=== PATIENT | female | born 1955 | race Caucasian/White ===

== ENCOUNTER 2017-08-06 09:16 | Emergency (ER) | payer MEDICAID ==
[2017-08-06 09:41] VITALS: RESP 18; BMI 41.8
[2017-08-06] MEDS ORDERED: Albuterol-Ipratrop 3 mg / 0.5 (3 ml) UD IH STA (10:07)
[2017-08-06] MEDS ORDERED: Albuterol-Ipratrop 3 mg / 0.5 (3 ml) UD ONE (10:25)
[2017-08-06 11:41] VITALS: BP 115/67; PULSE 71; TEMP 97.9; O2SAT 98
--- NOTE | 2017-08-06 11:46 | C.PDOC ---
History Of Present Illness 62-year-old female, presents to the emergency department with complaints of three week duration of shortness of breath and non-productive cough. States she had a Hx of asthma when she was a child, but has not experienced an exacerbation "for a long time." Denies nausea/vomiting, fevers or chills. Time Seen by Provider: 08/06/17 09:28 Chief Complaint (Nursing): Cough, Cold, Congestion History Per: Patient History/Exam Limitations: no limitations Onset/Duration Of Symptoms: Days Past Medical History Reviewed: Historical Data, Nursing Documentation, Vital Signs Vital Signs: Last Vital Signs Temp 97.9 F 08/06/17 11:40 Pulse 71 08/06/17 11:40 Resp 18 08/06/17 11:40 BP 115/67 08/06/17 11:40 Pulse Ox 98 08/06/17 16:22 - Medical History PMH: Diabetes - [facility] Procedures PHYSICAL THERAPY NEC (02/26/15) Family History: States: No Known Family Hx - Social History Hx Alcohol Use: Yes Hx Substance Use: No - Immunization History Hx Tetanus Toxoid Vaccination: No Hx Influenza Vaccination: No Hx Pneumococcal Vaccination: No Review Of Systems Except As Marked, All Systems Reviewed And Found Negative. Constitutional: Negative for: Fever, Chills Cardiovascular: Negative for: Chest Pain Respiratory: Positive for: Cough, Shortness of Breath Musculoskeletal: Negative for: Back Pain Neurological: Negative for: Weakness, Numbness, Headache, Dizziness Physical Exam - Physical Exam Appears: Non-toxic, No Acute Distress Skin: Warm, Dry, No Rash Head: Atraumatic, Normacephalic Eye(s): bilateral: Normal Inspection Nose: Normal Oral Mucosa: Moist Lips: Normal Appearing Neck: Normal ROM Cardiovascular: Rhythm Regular, No Murmur Respiratory: Normal Breath Sounds, No Accessory Muscle Use Extremity: Normal ROM Neurological/Psych: Oriented x3, Normal Speech ED Course And Treatment O2 Sat by Pulse Oximetry: 98 Progress Note: On re-evaluation patient feels better, no longer c/o SOB, mild diffuse wheezing. Patient was given Zithromax and Predsinone and she is stable to be d/c home. Disposition - Disposition Referrals: Susie Hwang APN [Advanced Practice Nurse] - Disposition: HOME/ ROUTINE Disposition Time: 11:44 Condition: STABLE Additional Instructions: Follow up with your PMD within 1-2 days. Return to Ed if feel worse. Prescriptions: Albuterol 0.083% [Albuterol Sulfate 3 Ml] 3 ml IH .Q4-6H #100 vial Nebulizer [Compact Compressor Nebulizer] 1 dev XX PRN PRN #1 dev PRN Reason: Wheezing Mask, Face [Nebulizer Aerosol Mask Adult] 1 dev XX PRN PRN #1 dev PRN Reason: Wheezing predniSONE [predniSONE Tab] 2 tab PO DAILY #8 tab Albuterol HFA [Ventolin HFA 90 mcg/actuation (8 g)] 1 puff IH .Q4-6H #1 inhaler Azithromycin [Zithromax] 250 mg PO DAILY #4 tab Instructions: Acute Bronchitis (ED), Wheezing (ED) Forms: [employer] (Hebrew) - Clinical Impression Clinical Impression: Bronchitis, Bronchospasm - Scribe Statement The provider has reviewed the documentation as recorded by the Scribe (Purnima Yoder) All medical record entries made by the Scribe were at my direction and personally dictated by me. I have reviewed the chart and agree that the record accurately reflects my personal performance of the history, physical exam, medical decision making, and the department course for this patient. I have also personally directed, reviewed, and agree with the discharge instructions and disposition.
--- NOTE | 2017-08-06 11:58 | RAD ---
HISTORY: cough/wheezing COMPARISON: Comparison is made to 11/06/2016 TECHNIQUE: Chest PA and lateral FINDINGS: LUNGS: No evidence of new infiltrate or consolidation in the lungs. PLEURA: No significant pleural effusion identified. No pneumothorax apparent. CARDIOVASCULAR: Normal. OSSEOUS STRUCTURES: No significant abnormalities. VISUALIZED UPPER ABDOMEN: Normal. OTHER FINDINGS: None. IMPRESSION: No radiographic evidence of pneumonia.
== END 2017-08-06 12:05 | disposition home or self-care (01) ==
LOC: C.ER 09:16
DX: J40 Bronchitis, not specified as acute or chronic (principal); J98.01 Acute bronchospasm

== ENCOUNTER 2018-02-27 14:04 | Inpatient (IN) | payer MEDICARE, MEDICAID ==
[2018-02-27 14:21] VITALS: BMI 37.4
[2018-02-27] MEDS ORDERED: Sodium Chloride 0.9% 1,000 ML IV ONE ×2 (15:34→18:08)
[2018-02-27 15:45] LABS: BASO % 0.3 % (0.0-2.0); EOS % 0.4 % (0.0-4.0); LYMPH # 0.7 K/uL (1.0-4.3); LYMPH % 9.1 % (20.0-40.0); MEAN CORPUSCULAR HEMOGLOBIN 31.4 pg (27.0-31.0); MEAN CORPUSCULAR HGB CONC 34.6 g/dL (33.0-37.0); MEAN PLATELET VOLUME 10.1 fL (7.2-11.7); MONO # 0.1 K/uL (0.0-0.8); MONO % 1.3 % (0.0-10.0); NEUT # 7.2 K/uL (1.8-7.0); NEUT % 88.9 % (50.0-75.0); NRBC % 0.1 % (0.0-2.0); PLATELET COUNT 145 K/uL (130-400); RBC 4.47 Mil/uL (3.80-5.20); RED CELL DISTRIBUTION WIDTH 14.3 % (11.5-14.5); WHITE BLOOD COUNT 8.1 K/uL (4.8-10.8)
[2018-02-27 15:48] LABS: MEAN CELL VOLUME 90.5 fL (81.0-99.0)
[2018-02-27 15:50] LABS: SQUAMOUS EPITHIAL < 1 /hpf (0-5); URINE BACTERIA OCC (<OCC); URINE BILIRUBIN NEGATIVE (NEGATIVE); URINE BLOOD 2+ (NEGATIVE); URINE CLARITY Clear (Clear); URINE COLOR Yellow (YELLOW); URINE GLUCOSE (UA) 1+ mg/dL (Normal); URINE LEUKOCYTE ESTERASE 1+ Leu/uL (Negative); URINE PROTEIN 1+ mg/dL (NEGATIVE); URINE UROBILINOGEN NORMAL mg/dL (0.2-1.0)
[2018-02-27 16:00] LABS: ALB/GLOB RATIO 1.2 (1.0-2.1); ALBUMIN 4.5 g/dL (3.5-5.0); ALT/SGPT 23 U/L (9-52); AST/SGOT 23 U/L (14-36); BLOOD UREA NITROGEN 10 mg/dL (7-17); CALCIUM 9.1 mg/dl (8.6-10.4); GFR AFRICAN-AMERICAN > 60; GFR NON-AFRICAN AMERICAN > 60
[2018-02-27] MEDS ORDERED: Sodium Chloride 0.9% 1,000 ML ONE ×2 (16:51→18:12)
[2018-02-27 16:58] LABS: BANDS 1 % (0-2); BASOPHIL 1 % (0-2); LYMPHOCYTE 11 % (20-40); MONOCYTE 3 % (0-10); NEUTROPHIL 84 % (50-75); PLATELET ESTIMATE NORMAL (NORMAL); TOTAL CELLS COUNTED 100
[2018-02-27 17:17] LABS: VENOUS BLOOD GAS BASE EXCESS -1.7 mmol/L (0.0-2.0); VENOUS BLOOD GAS PCO2 33 mmHg (40-60); VENOUS BLOOD GAS PO2 39 mm/Hg (30-55); VENOUS BLOOD PH 7.43 (7.32-7.43)
[2018-02-27] MEDS ORDERED: cefTRIAXone IV 1 gm in Dextros 50 ML IVPB STA ×2 (17:47→18:01)
--- NOTE | 2018-02-27 19:04 | C.PDOC ---
Time Seen by Provider: 02/27/18 15:23 Chief Complaint (Nursing): Fever History Per: Patient, Family Onset/Duration Of Symptoms: Days (1) Current Symptoms Are (Timing): Still Present Associated Symptoms: Fever, Chills, Nausea, Other (Urinary symptoms) Severity: Moderate Additional History Per: Prior Records Past Medical History Reviewed: Historical Data, Nursing Documentation, Vital Signs Vital Signs: Last Vital Signs Temp 99.2 F 02/27/18 18:57 Pulse 107 H 02/27/18 18:57 Resp 24 02/27/18 18:57 BP 90/57 L 02/27/18 18:57 Pulse Ox 97 02/27/18 18:57 - Medical History PMH: Arthritis, Diabetes, HTN Surgical History: - [facility] Procedures PHYSICAL THERAPY NEC (02/26/15) Family History: States: Unknown Family Hx - Social History Hx Alcohol Use: Yes Hx Substance Use: No - Immunization History Hx Tetanus Toxoid Vaccination: No Hx Influenza Vaccination: Yes Hx Pneumococcal Vaccination: Yes Review Of Systems Except As Marked, All Systems Reviewed And Found Negative. Constitutional: Positive for: Fever, Chills, Weakness, Malaise ENT: Negative for: Nose Congestion, Throat Pain Cardiovascular: Negative for: Chest Pain Respiratory: Negative for: Cough, Shortness of Breath Gastrointestinal: Negative for: Vomiting, Abdominal Pain, Diarrhea Genitourinary: Positive for: Dysuria, Frequency Musculoskeletal: Positive for: Back Pain. Negative for: Neck Pain Skin: Negative for: Rash Neurological: Negative for: Weakness, Numbness, Seizures, Altered Mental Status Physical Exam - Physical Exam Appears: Non-toxic, No Acute Distress Skin: Normal Color, Warm, Dry, No Rash Head: Atraumatic, Normacephalic Eye(s): bilateral: Normal Inspection, PERRL, EOMI Neck: Normal ROM, Supple Cardiovascular: Rhythm Regular Respiratory: Normal Breath Sounds, No Accessory Muscle Use Gastrointestinal/Abdominal: Soft, No Tenderness Back: CVA Tenderness Extremity: Normal ROM Neurological/Psych: Oriented x3, Normal Motor, Normal Sensation ED Course And Treatment - Laboratory Results Result Diagrams: 02/27/18 15:42 02/27/18 15:42 Interpretation Of Abnormal: UTI. Left shift on CBC. O2 Sat by Pulse Oximetry: 97 Pulse Ox Interpretation: Normal Progress - Interventions Interventions:: Observation, Intravenous fluid - Medications Administered Oral: Acetaminophen Intravenous: Other (Abx) - Data Reviewed Data Reviewed: Lab, Old records - Patient Status Patient status: Partially improved - Continuity of Care Discussed patient case with:: Patient, Family-HIPPA compliant, ED Nurse, On- call PMD-pt unassigned - Patient Plan Patient Plan: Admission Disposition Discussed With DrRachell: Joshua Santiago Jr. Comment: He accepted pt on his service. Pt also signed out to MAR. Doctor Will See Patient In The: Hospital Counseled Patient/Family Regarding: Studies Performed, Diagnosis - Disposition Disposition: HOSPITALIZED Disposition Time: 19:05 Condition: FAIR - Clinical Impression Clinical Impression: Fever, Pyelonephritis, acute
--- NOTE | 2018-02-27 23:24 | CP.PCM.HP ---
History of Present Illness - History of Present Illness History of Present Illness: CC: fever and chills 62 year old female with a PMHx of DM, arthritis and HTN presents to the ED for fever and generalized body aches. Patient's niece was a bedside acted as core filer. Patient had a subjective fever and generalized body aches started last night. It did not improve overnight and became worse in the afternoon which which prompted the patient to come to the ED. She did not take any medications for the fever or body ache. Patient had similar episode last year which she saw her PMD and received antibiotics for it. She denies having dysuria , changes in urine color, or incontinence. Patient further denies shortness of breath, chest pain, nausea, vomiting, diarrhea, changes in diet, or sick contacts. Niece: Selena [phone] PMD: Lissy MERCEDES, Brogan PMH:DM, HTN, arthritis PSx: Right knee replacement (2001), Cesarian section (1979) Allergy: NKDA Social: Denies alcohol, tobacco, or illicit drug. She lives with her sister and is unemployed Family Hx: Father DM, Mother , Sister: unknown cancer at 64 Medications: Metformin, ?name insulin once a week Pharmacy: [facility] pharmacy Present on Admission - Present on Admission Any Indicators Present on Admission: No Review of Systems - Constitutional Constitutional: As Per HPI, Chills, Fever, Weakness - EENT Eyes: As Per HPI. absent: Blind Spots, Blurred Vision, Discharge Ears: As Per HPI. absent: Dizziness Nose/Mouth/Throat: As Per HPI. absent: Epistaxis, Nasal Trauma - Breasts Breasts: As Per HPI - Cardiovascular Cardiovascular: As Per HPI. absent: Chest Pain, Diaphoresis - Respiratory Respiratory: As Per HPI. absent: Cough, Dyspnea - Gastrointestinal Gastrointestinal: As Per HPI, Abdominal Pain. absent: Diarrhea, Nausea, Vomiting - Genitourinary Genitourinary: As Per HPI - Reproductive: Female Reproductive:Female: As Per HPI - Menstruation Menstruation: As Per HPI - Musculoskeletal Musculoskeletal: As Per HPI. absent: Neck Pain, Numbness - Integumentary Integumentary: As Per HPI. absent: Acne, Bleeding Lesions - Neurological Neurological: As Per HPI, Weakness. absent: Dizziness, Numbness, Syncope - Psychiatric Psychiatric: As Per HPI. absent: Depression, Irritability - Endocrine Endocrine: As Per HPI - Hematologic/Lymphatic Hematologic: As Per HPI Past Patient History - Past Social History Smoking Status: Never Smoked - CARDIAC Hx Hypertension: Yes - ENDOCRINE/METABOLIC Hx Endocrine Disorders: Yes Hx Diabetes Mellitus Type 2: Yes - MUSCULOSKELETAL/RHEUMATOLOGICAL Hx Arthritis: Yes - PSYCHIATRIC Hx Substance Use: No - SURGICAL HISTORY Hx Surgeries: Yes Hx Orthopedic Surgery: Yes (knee) Hx Tubal Ligation: Yes Other/Comment: rt knee pain - ANESTHESIA Hx Anesthesia: Yes Hx Anesthesia Reactions: No Meds Allergies/Adverse Reactions: Allergies Allergy/AdvReac Type Severity Reaction Status Date / Time No Known Allergies Allergy Verified 02/27/18 14:17 Physical Exam - Constitutional Appears: Well, Non-toxic, No Acute Distress - Head Exam Head Exam: ATRAUMATIC, NORMOCEPHALIC - Eye Exam Eye Exam: EOMI, Normal appearance - ENT Exam ENT Exam: Mucous Membranes Moist, Normal Exam - Neck Exam Neck exam: Positive for: Normal Inspection - Respiratory Exam Respiratory Exam: Clear to Auscultation Bilateral, NORMAL BREATHING PATTERN. absent: Respiratory Distress - Cardiovascular Exam Cardiovascular Exam: REGULAR RHYTHM, +S1, +S2 - GI/Abdominal Exam GI & Abdominal Exam: Normal Bowel Sounds, Soft. absent: Tenderness - Extremities Exam Extremities exam: Positive for: normal inspection, pedal pulses present. Negative for: pedal edema, tenderness - Back Exam Back exam: CVA tenderness (L), CVA tenderness (R) - Neurological Exam Neurological exam: Alert, Oriented x3 - Psychiatric Exam Psychiatric exam: Normal Affect, Normal Mood - Skin Skin Exam: Dry, Intact, Warm Results - Vital Signs Recent Vital Signs: Last Vital Signs Temp 98.5 F 02/27/18 22:59 Pulse 96 H 02/27/18 20:38 Resp 18 02/27/18 20:38 BP 96/50 L 02/27/18 20:38 Pulse Ox 98 02/27/18 20:38 - Labs Result Diagrams: 02/27/18 15:42 02/27/18 15:42 Labs: Laboratory Results - last 24 hr 02/27/18 02/27/18 02/27/18 14:28 15:31 15:42 WBC 8.1 RBC 4.47 Hgb 14.0 Hct 40.5 MCV 90.5 D MCH 31.4 H MCHC 34.6 RDW 14.3 Plt Count 145 MPV 10.1 Neut % (Auto) 88.9 H Lymph % (Auto) 9.1 L [place] % (Auto) 1.3 Eos % (Auto) 0.4 Baso % (Auto) 0.3 Neut # (Auto) 7.2 H Lymph # (Auto) 0.7 L [place] # (Auto) 0.1 Eos # (Auto) 0.0 Baso # (Auto) 0.0 Neutrophils % (Manual) 84 H Band Neutrophils % 1 Lymphocytes % (Manual) 11 L Monocytes % (Manual) 3 Basophils % (Manual) 1 Platelet Estimate Normal pO2 VBG pH VBG pCO2 VBG HCO3 VBG Total CO2 VBG O2 Sat (Calc) VBG Base Excess VBG Potassium Glucose Lactate FiO2 Sodium Potassium Chloride Carbon Dioxide Anion Gap BUN Creatinine Est GFR ( Amer) Est GFR (Non-Af Amer) POC Glucose (mg/dL) 137 H Random Glucose Calcium Total Bilirubin AST ALT Alkaline Phosphatase Total Protein Albumin Globulin Albumin/Globulin Ratio Venous Blood Potassium Urine Color Urine Clarity Urine pH Ur Specific [place] Urine Protein Urine Glucose (UA) Urine Ketones Urine Blood Urine Nitrate Urine Bilirubin Urine Urobilinogen Ur Leukocyte Esterase Urine WBC (Auto) Urine RBC (Auto) Ur Squamous Epith Cells Urine Bacteria Influenza Typ A,B (EIA) Negative for flu a/b 02/27/18 02/27/18 02/27/18 15:42 15:42 17:10 WBC RBC Hgb Hct MCV MCH MCHC RDW Plt Count MPV Neut % (Auto) Lymph % (Auto) [place] % (Auto) Eos % (Auto) Baso % (Auto) Neut # (Auto) Lymph # (Auto) [place] # (Auto) Eos # (Auto) Baso # (Auto) Neutrophils % (Manual) Band Neutrophils % Lymphocytes % (Manual) Monocytes % (Manual) Basophils % (Manual) Platelet Estimate pO2 39 VBG pH 7.43 VBG pCO2 33 L VBG HCO3 23.0 VBG Total CO2 22.9 VBG O2 Sat (Calc) 84.0 H VBG Base Excess -1.7 L VBG Potassium 2.8 L Glucose 129 H Lactate 1.2 FiO2 21.0 Sodium 140 138.0 Potassium 3.5 L Chloride 97 L 105.0 Carbon Dioxide 26 Anion Gap 20 BUN 10 Creatinine 0.6 L Est GFR ( Amer) > 60 Est GFR (Non-Af Amer) > 60 POC Glucose (mg/dL) Random Glucose 133 H Calcium 9.1 Total Bilirubin 1.1 AST 23 ALT 23 Alkaline Phosphatase 130 H Total Protein 8.4 H Albumin 4.5 Globulin 3.9 Albumin/Globulin Ratio 1.2 Venous Blood Potassium 2.8 L Urine Color Yellow Urine Clarity Clear Urine pH 6.0 Ur Specific [place] 1.009 Urine Protein 1+ H Urine Glucose (UA) 1+ Urine Ketones Negative Urine Blood 2+ H Urine Nitrate Positive H Urine Bilirubin Negative Urine Urobilinogen Normal Ur Leukocyte Esterase 1+ H Urine WBC (Auto) 20 H Urine RBC (Auto) 19 H Ur Squamous Epith Cells < 1 Urine Bacteria Occ H Influenza Typ A,B (EIA) 02/27/18 18:04 WBC RBC Hgb Hct MCV MCH MCHC RDW Plt Count MPV Neut % (Auto) Lymph % (Auto) [place] % (Auto) Eos % (Auto) Baso % (Auto) Neut # (Auto) Lymph # (Auto) [place] # (Auto) Eos # (Auto) Baso # (Auto) Neutrophils % (Manual) Band Neutrophils % Lymphocytes % (Manual) Monocytes % (Manual) Basophils % (Manual) Platelet Estimate pO2 VBG pH VBG pCO2 VBG HCO3 VBG Total CO2 VBG O2 Sat (Calc) VBG Base Excess VBG Potassium Glucose Lactate FiO2 Sodium Potassium Chloride Carbon Dioxide Anion Gap BUN Creatinine Est GFR ( Amer) Est GFR (Non-Af Amer) POC Glucose (mg/dL) 121 H Random Glucose Calcium Total Bilirubin AST ALT Alkaline Phosphatase Total Protein Albumin Globulin Albumin/Globulin Ratio Venous Blood Potassium Urine Color Urine Clarity Urine pH Ur Specific [place] Urine Protein Urine Glucose (UA) Urine Ketones Urine Blood Urine Nitrate Urine Bilirubin Urine Urobilinogen Ur Leukocyte Esterase Urine WBC (Auto) Urine RBC (Auto) Ur Squamous Epith Cells Urine Bacteria Influenza Typ A,B (EIA) Assessment & Plan - Assessment and Plan (Free Text) Assessment: Pyelonephritis -Fever 102.9, CVA tenderness -UA positive for LE, WBC, RBC, Nitrate -Rapid flu, lactate negative -Rocephin 1gm IV -follow up urine and blood cultures -Motrin prn DM -FS ACHS -ISS -Hypoglycemia protocol -Consistent carb diet Hypokalemia -On admission 3.5 -Supplement as needed Prophylactic measure -Protonix -Lovenox -Please confirm meds from patient's pharmacy Discussed with attending physician All management per Dr. Santiago
[2018-02-27 23:53] VITALS: RESP 20
[2018-02-28] MEDS ORDERED: Dextrose 50% SYRINGE Inj (50 ml) IVP PRN (04:04)
[2018-02-28] MEDS ORDERED: Glucagon Recombinant 1 mg Inj IM PRN (04:04)
[2018-02-28] MEDS ORDERED: Potassium Chloride 20 mEq ER Tab PO ONE (06:00)
[2018-02-28] MEDS ORDERED: (Novolog) Insulin Aspart, Recombinant 100 u/ml 10 ml vial SC SCH (07:30)
[2018-02-28] MEDS: (Novolin R) Insulin Human Regular 100 units/ml vial SC SCH ×4 (08:10→22:03)
[2018-02-28 08:48] LABS: MEAN CELL VOLUME 90.7 fL (81.0-99.0); MEAN CORPUSCULAR HEMOGLOBIN 30.7 pg (27.0-31.0); MEAN CORPUSCULAR HGB CONC 33.9 g/dL (33.0-37.0); MEAN PLATELET VOLUME 10.4 fL (7.2-11.7); RBC 3.92 Mil/uL (3.80-5.20); RED CELL DISTRIBUTION WIDTH 14.5 % (11.5-14.5)
[2018-02-28 08:59] LABS: ALBUMIN 3.3 g/dL (3.5-5.0); ALT/SGPT 23 U/L (9-52); AST/SGOT 23 U/L (14-36); BLOOD UREA NITROGEN 14 mg/dL (7-17); CALCIUM 8.3 mg/dl (8.6-10.4); GFR AFRICAN-AMERICAN > 60; GFR NON-AFRICAN AMERICAN > 60
[2018-02-28] MEDS ORDERED: Pantoprazole 40 mg EC Tab PO SCH (10:00)
[2018-02-28 10:15] LABS: LIPASE 32 U/L (23-300)
[2018-02-28] MEDS: Sodium Chloride 0.9% 1,000 ML IV SCH ×2 (10:35→20:31)
[2018-02-28] MEDS: Enoxaparin 40 mg Syringe SC SCH (10:35)
--- NOTE | 2018-02-28 14:18 | CP.PCM.PN ---
Subjective - Date & Time of Evaluation Date of Evaluation: 02/28/18 Time of Evaluation: 14:13 - Subjective Subjective: Patient seen and examined at bedside Complaining of a little headache but no back pain, CVA pain, fevers, chills, blood in urine, painful urination No other complaints at this time Objective - Vital Signs/Intake and Output Vital Signs (last 24 hours): Temp Pulse Resp BP Pulse Ox 98.6 F 87 20 93/60 L 97 02/28/18 07:58 02/28/18 07:58 02/28/18 07:58 02/28/18 07:58 02/28/18 07:58 Intake and Output: 02/28/18 02/28/18 06:59 18:59 Intake Total 250 Balance 250 - Medications Medications: Current Medications Enoxaparin Sodium (Lovenox) 40 mg SC DAILY [facility] Last Admin: 02/28/18 10:35 Dose: 40 mg Ceftriaxone Sodium 1 gm/ (Sodium Chloride) 100 mls @ 100 mls/hr IVPB DAILY [facility] PRN Reason: Protocol Last Admin: 02/28/18 10:34 Dose: 100 mls/hr Sodium Chloride (Sodium Chloride 0.9%) 1,000 mls @ 135 mls/hr IV .Q7H25M [facility] Last Admin: 02/28/18 10:35 Dose: 135 mls/hr Insulin Human Regular (Novolin R) 0 unit SC ACHS [facility] PRN Reason: Protocol Last Admin: 02/28/18 12:36 Dose: 2 unit - Labs Labs: 02/28/18 04:00 02/28/18 04:00 - Constitutional Appears: Well - Head Exam Head Exam: ATRAUMATIC, NORMAL INSPECTION, NORMOCEPHALIC - Eye Exam Eye Exam: EOMI, Normal appearance, PERRL Pupil Exam: NORMAL ACCOMODATION, PERRL - ENT Exam ENT Exam: Mucous Membranes Moist, Normal Exam - Neck Exam Neck Exam: Full ROM, Normal Inspection. absent: Lymphadenopathy - Respiratory Exam Respiratory Exam: Clear to Ausculation Bilateral, NORMAL BREATHING PATTERN - Cardiovascular Exam Cardiovascular Exam: REGULAR RHYTHM, +S1, +S2. absent: Murmur - GI/Abdominal Exam GI & Abdominal Exam: Soft, Normal Bowel Sounds. absent: Tenderness - Rectal Exam Rectal Exam: NORMAL INSPECTION - Exam Exam: Circumcision, NORMAL INSPECTION External exam: NORMAL EXTERNAL EXAM Speculum exam: NORMAL SPECULUM EXAM Bimanual exam: NORMAL BIMANUAL EXAM - Extremities Exam Extremities Exam: Full ROM, Normal Capillary Refill, Normal Inspection. absent : Joint Swelling, Pedal Edema - Back Exam Back Exam: NORMAL INSPECTION - Neurological Exam Neurological Exam: Alert, Awake, CN II-XII Intact, Normal Gait, Oriented x3 - Psychiatric Exam Psychiatric exam: Normal Affect, Normal Mood - Skin Skin Exam: Dry, Intact, Normal Color, Warm Assessment and Plan - Assessment and Plan (Free Text) Assessment: Pyelonephritis Rocephin 1gm IV follow up urine and blood cultures DM ISS Prophylactic measure GI PPX not indicated Lovenox
[2018-02-28] MEDS ORDERED: Tramadol 25 mg PO ONE (15:47)
[2018-03-01] MEDS: Sodium Chloride 0.9% 1,000 ML IV SCH ×3 (01:05→09:59)
[2018-03-01 07:25] LABS: BASO % 0.5 % (0.0-2.0); EOS % 0.3 % (0.0-4.0); HEMOGLOBIN 11.8 g/dL (11.0-16.0); LYMPH # 1.8 K/uL (1.0-4.3); MEAN CELL VOLUME 91.3 fL (81.0-99.0); MEAN CORPUSCULAR HEMOGLOBIN 31.2 pg (27.0-31.0); MEAN CORPUSCULAR HGB CONC 34.2 g/dL (33.0-37.0); MEAN PLATELET VOLUME 10.1 fL (7.2-11.7); MONO # 0.8 K/uL (0.0-0.8); MONO % 8.1 % (0.0-10.0); NEUT # 7.2 K/uL (1.8-7.0); NEUT % 73.1 % (50.0-75.0); RBC 3.79 Mil/uL (3.80-5.20); RED CELL DISTRIBUTION WIDTH 14.4 % (11.5-14.5); WHITE BLOOD COUNT 9.9 K/uL (4.8-10.8)
[2018-03-01 07:43] LABS: ALBUMIN 3.4 g/dL (3.5-5.0); ALT/SGPT 18 U/L (9-52); AST/SGOT 20 U/L (14-36); BLOOD UREA NITROGEN 7 mg/dL (7-17); CALCIUM 8.5 mg/dl (8.6-10.4); GFR AFRICAN-AMERICAN > 60; GFR NON-AFRICAN AMERICAN > 60
[2018-03-01] MEDS: (Novolin R) Insulin Human Regular 100 units/ml vial SC SCH ×2 (07:43→12:08)
[2018-03-01] MEDS: Enoxaparin 40 mg Syringe SC SCH (09:58)
--- NOTE | 2018-03-01 11:41 | CP.PCM.DIS ---
Provider - Provider Date of Admission: 02/27/18 19:05 Attending physician: Joshua Santiago Jr, MD Time Spent in preparation of Discharge (in minutes): 45 Hospital Course - Lab Results Lab Results: Micro Results 02/27/18 15:34 Urine Urine Culture - Final Escherichia Coli 02/27/18 16:30 Blood Blood Culture - Preliminary NO GROWTH AFTER 24 HOURS 02/27/18 17:00 Blood Blood Culture - Preliminary NO GROWTH AFTER 24 HOURS Most Recent Lab Values WBC 9.9 K/uL (4.8-10.8) 03/01/18 07:12 RBC 3.79 Mil/uL (3.80-5.20) L 03/01/18 07:12 Hgb 11.8 g/dL (11.0-16.0) 03/01/18 07:12 Hct 34.6 % (34.0-47.0) 03/01/18 07:12 MCV 91.3 fL (81.0-99.0) 03/01/18 07:12 MCH 31.2 pg (27.0-31.0) H 03/01/18 07:12 MCHC 34.2 g/dL (33.0-37.0) 03/01/18 07:12 RDW 14.4 % (11.5-14.5) 03/01/18 07:12 Plt Count 131 K/uL (130-400) 03/01/18 07:12 MPV 10.1 fL (7.2-11.7) 03/01/18 07:12 Neut % (Auto) 73.1 % (50.0-75.0) 03/01/18 07:12 Lymph % (Auto) 18.0 % (20.0-40.0) L 03/01/18 07:12 [place] % (Auto) 8.1 % (0.0-10.0) 03/01/18 07:12 Eos % (Auto) 0.3 % (0.0-4.0) 03/01/18 07:12 Baso % (Auto) 0.5 % (0.0-2.0) 03/01/18 07:12 Neut # (Auto) 7.2 K/uL (1.8-7.0) H 03/01/18 07:12 Lymph # (Auto) 1.8 K/uL (1.0-4.3) 03/01/18 07:12 [place] # (Auto) 0.8 K/uL (0.0-0.8) 03/01/18 07:12 Eos # (Auto) 0.0 K/uL (0.0-0.7) 03/01/18 07:12 Baso # (Auto) 0.0 K/uL (0.0-0.2) 03/01/18 07:12 Neutrophils % (Manual) 84 % (50-75) H 02/27/18 15:42 Band Neutrophils % 1 % (0-2) 02/27/18 15:42 Lymphocytes % (Manual) 11 % (20-40) L 02/27/18 15:42 Monocytes % (Manual) 3 % (0-10) 02/27/18 15:42 Basophils % (Manual) 1 % (0-2) 02/27/18 15:42 Platelet Estimate Normal (NORMAL) 02/27/18 15:42 pO2 39 mm/Hg (30-55) 02/27/18 17:10 VBG pH 7.43 (7.32-7.43) 02/27/18 17:10 VBG pCO2 33 mmHg (40-60) L 02/27/18 17:10 VBG HCO3 23.0 mmol/L 02/27/18 17:10 VBG Total CO2 22.9 mmol/L (22-28) 02/27/18 17:10 VBG O2 Sat (Calc) 84.0 % (40-65) H 02/27/18 17:10 VBG Base Excess -1.7 mmol/L (0.0-2.0) L 02/27/18 17:10 VBG Potassium 2.8 mmol/L (3.6-5.2) L 02/27/18 17:10 Sodium 138.0 mmol/l (132-148) 02/27/18 17:10 Chloride 105.0 mmol/L (98-107) 02/27/18 17:10 Glucose 129 mg/dl (65-105) H 02/27/18 17:10 Lactate 1.2 mmol/L (0.7-2.1) 02/27/18 17:10 FiO2 21.0 % 02/27/18 17:10 Sodium 140 mmol/L (132-148) 03/01/18 07:12 Potassium 3.7 mmol/L (3.6-5.2) 03/01/18 07:12 Chloride 105 mmol/L (98-107) 03/01/18 07:12 Carbon Dioxide 25 mmol/L (22-30) 03/01/18 07:12 Anion Gap 15 (10-20) 03/01/18 07:12 BUN 7 mg/dL (7-17) 03/01/18 07:12 Creatinine 0.6 mg/dL (0.7-1.2) L 03/01/18 07:12 Est GFR ( Amer) > 60 03/01/18 07:12 Est GFR (Non-Af Amer) > 60 03/01/18 07:12 POC Glucose (mg/dL) 189 mg/dL (65-110) H 03/01/18 11:13 Random Glucose 150 mg/dL (65-105) H 03/01/18 07:12 Calcium 8.5 mg/dl (8.6-10.4) L 03/01/18 07:12 Total Bilirubin 0.6 mg/dL (0.2-1.3) 03/01/18 07:12 AST 20 U/L (14-36) 03/01/18 07:12 ALT 18 U/L (9-52) 03/01/18 07:12 Alkaline Phosphatase 110 U/L (38-126) 03/01/18 07:12 Total Protein 6.7 g/dL (6.3-8.3) 03/01/18 07:12 Albumin 3.4 g/dL (3.5-5.0) L 03/01/18 07:12 Globulin 3.3 gm/dL (2.2-3.9) 03/01/18 07:12 Albumin/Globulin Ratio 1.0 (1.0-2.1) 03/01/18 07:12 Lipase 32 U/L (23-300) 02/28/18 04:00 Venous Blood Potassium 2.8 mmol/L (3.6-5.2) L 02/27/18 17:10 Urine Color Yellow (YELLOW) 02/27/18 15:42 Urine Clarity Clear (Clear) 02/27/18 15:42 Urine pH 6.0 (5.0-8.0) 02/27/18 15:42 Ur Specific [place] 1.009 (1.003-1.030) 02/27/18 15:42 Urine Protein 1+ mg/dL (NEGATIVE) H 02/27/18 15:42 Urine Glucose (UA) 1+ mg/dL (Normal) 02/27/18 15:42 Urine Ketones Negative mg/dL (NEGATIVE) 02/27/18 15:42 Urine Blood 2+ (NEGATIVE) H 02/27/18 15:42 Urine Nitrate Positive (NEGATIVE) H 02/27/18 15:42 Urine Bilirubin Negative (NEGATIVE) 02/27/18 15:42 Urine Urobilinogen Normal mg/dL (0.2-1.0) 02/27/18 15:42 Ur Leukocyte Esterase 1+ Ana M/uL (Negative) H 02/27/18 15:42 Urine WBC (Auto) 20 /hpf (0-5) H 02/27/18 15:42 Urine RBC (Auto) 19 /hpf (0-3) H 02/27/18 15:42 Ur Squamous Epith Cells < 1 /hpf (0-5) 02/27/18 15:42 Urine Bacteria Occ (<OCC) H 02/27/18 15:42 Influenza Typ A,B (EIA) Negative for flu a/b (NEGATIVE) 02/27/18 15:31 - Hospital Course Hospital Course: 62 year old female with a PMHx of DM, arthritis and HTN presents to the ED for fever and generalized body aches. Patient's niece was a bedside acted as sanding machine tender automatic. Patient had a subjective fever and generalized body aches started last night. It did not improve overnight and became worse in the afternoon which which prompted the patient to come to the ED. She did not take any medications for the fever or body ache. Patient had similar episode last year which she saw her PMD and received antibiotics for it. She denies having dysuria , changes in urine color, or incontinence. Patient further denies shortness of breath, chest pain, nausea, vomiting, diarrhea, changes in diet, or sick contacts. Hospital course: Urine culture shows E. coli garza sensitive. Afeberile for 24H. No complaints at this time. Discharge on ciporflox 500 BID for 5 days Discharge Exam - Head Exam Head Exam: ATRAUMATIC, NORMAL INSPECTION, NORMOCEPHALIC - Eye Exam Eye Exam: EOMI, Normal appearance, PERRL Pupil Exam: NORMAL ACCOMODATION, PERRL - GI/Abdominal Exam GI & Abdominal Exam: Normal Bowel Sounds - Neurological Exam Neurological exam: Alert, CN II-XII Intact, Normal Gait, Oriented x3, Reflexes Normal - Psychiatric Exam Psychiatric exam: Normal Affect, Normal Mood - Skin Skin Exam: Dry, Intact, Normal Color, Warm Discharge Plan - Discharge Medications Prescriptions: Ciprofloxacin [Cipro] 500 mg PO BID 5 Days tab - Follow Up Plan Condition: FAIR Disposition: HOME/ ROUTINE Instructions: Acute Pyelonephritis (DC), Acute Pyelonephritis (GEN) Additional Instructions: Please take Ciprofloxacin 500mg 2 times per day for 5 days Please follow up with regular doctor in 7-10 days. Please come back to the ED if your symptoms worsen
[2018-03-01 13:17] VITALS: TEMP 98.4
[2018-03-01 16:16] VITALS: BP 100/56; PULSE 80; O2SAT 97
== END 2018-03-01 17:24 | disposition home or self-care (01) | DRG 690 ==
LOC: C.ER 14:04 → C.9E 19:05 → C.3T 20:27
PROVIDERS: ADMIT Internal Medicine; ATTEND Internal Medicine
DX: N10 Acute pyelonephritis (principal); E11.9 Type 2 diabetes mellitus without complications; I10 Essential (primary) hypertension; M19.90 Unspecified osteoarthritis, unspecified site; E87.6 Hypokalemia; Z96.651 Presence of right artificial knee joint; B96.20 Unspecified Escherichia coli [E. coli] as the cause of diseases classified elsewhere; Z79.4 Long term (current) use of insulin

== ENCOUNTER 2018-09-19 00:44 | Emergency (ER) | payer MEDICARE, MEDICAID ==
[2018-09-19 00:44] VITALS: BMI 37.4
[2018-09-19 01:00] VITALS: RESP 20
[2018-09-19] MEDS ORDERED: Sodium Chloride 0.9% 1,000 ML IV ONE (01:39)
[2018-09-19] MEDS ORDERED: Sodium Chloride 0.9% 1,000 ML ONE (01:49)
[2018-09-19 01:55] LABS: BASO % 0.4 % (0.0-2.0); EOS # 0.2 K/uL (0.0-0.7); EOS % 1.9 % (0.0-4.0); HEMOGLOBIN 13.3 g/dL (11.0-16.0); LYMPH # 4.6 K/uL (1.0-4.3); MEAN CELL VOLUME 93.2 fL (81.0-99.0); MEAN CORPUSCULAR HGB CONC 33.3 g/dL (33.0-37.0); MEAN PLATELET VOLUME 11.6 fL (7.2-11.7); MONO # 0.6 K/uL (0.0-0.8); MONO % 6.9 % (0.0-10.0); NEUT # 3.3 K/uL (1.8-7.0); NEUT % 37.8 % (50.0-75.0); NRBC % 0.1 % (0.0-2.0); RBC 4.29 Mil/uL (3.80-5.20); RED CELL DISTRIBUTION WIDTH 14.6 % (11.5-14.5); WHITE BLOOD COUNT 8.7 K/uL (4.8-10.8)
[2018-09-19 02:08] LABS: ALB/GLOB RATIO 1.4 (1.0-2.1); ALBUMIN 4.4 g/dL (3.5-5.0); ALT/SGPT 21 U/L (9-52); AST/SGOT 22 U/L (14-36); BLOOD UREA NITROGEN 16 mg/dL (7-17); CALCIUM 9.3 mg/dl (8.6-10.4); GFR NON-AFRICAN AMERICAN > 60
--- NOTE | 2018-09-19 03:12 | C.PDOC ---
History Of Present Illness 63 y/o female presents to the ED complaining of feeling dizzy on and off all day today. States dizziness is worse when she stands up. Denies any associated syncope/LOC, nausea, vomiting, visual loss, chest pain, or SOB. She also comp lains of pain to her left shoulder which radiates down the left arm and up to left neck. No headache. No numbness, tingling, or focal weakness. Time Seen by Provider: 09/19/18 01:00 Chief Complaint (Nursing): Dizziness/Lightheaded History Per: Patient History/Exam Limitations: no limitations Onset/Duration Of Symptoms: Hrs, Intermittent Episodes Current Symptoms Are (Timing): Still Present Activity At Onset Of Symptoms: Standing Past Medical History Reviewed: Historical Data, Nursing Documentation, Vital Signs Vital Signs: Last Vital Signs Temp 97.7 F 09/19/18 00:56 Pulse 72 09/19/18 00:56 Resp 20 09/19/18 00:56 BP 149/60 09/19/18 00:56 Pulse Ox 100 09/19/18 00:56 - Medical History PMH: Arthritis, Diabetes, HTN Surgical History: - [facility] Procedures PHYSICAL THERAPY NEC (02/26/15) Family History: States: Unknown Family Hx - Social History Hx Alcohol Use: No Hx Substance Use: No - Immunization History Hx Tetanus Toxoid Vaccination: No Hx Influenza Vaccination: Yes Hx Pneumococcal Vaccination: Yes Review Of Systems Constitutional: Negative for: Fever Eyes: Negative for: Vision Change Cardiovascular: Negative for: Chest Pain, Palpitations Respiratory: Negative for: Shortness of Breath Gastrointestinal: Negative for: Nausea, Vomiting Musculoskeletal: Positive for: Neck Pain (left), Shoulder Pain (left shoulder, radiating down left arm) Neurological: Positive for: Dizziness. Negative for: Weakness, Numbness, Headache, Other (syncope/LOC) Physical Exam - Physical Exam Appears: Non-toxic, No Acute Distress Skin: Normal Color, Warm, Dry Head: Atraumatic, Normacephalic Eye(s): bilateral: Normal Inspection, PERRL, EOMI Neck: No Midline Cervical Tenderness, Paracervical Tenderness (to left lateral neck), Supple Chest: Symmetrical Cardiovascular: Rhythm Regular, No Murmur Respiratory: Normal Breath Sounds, No Accessory Muscle Use Extremity: Normal ROM (of bilateral upper extremities), Tenderness (to the left lateral shoulder), Capillary Refill (less than 2sec), No Deformity, No Swelling Pulses: Left Radial: Normal, Right Radial: Normal Neurological/Psych: Oriented x3, Normal Speech, Normal Cranial Nerves (2-12 intact), Normal Motor, Normal Sensation, Other (No focal deficits) ED Course And Treatment - Laboratory Results Result Diagrams: 09/19/18 01:49 09/19/18 01:49 ECG: Interpreted By Me, Viewed By Me ECG Rhythm: Sinus Rhythm (at 73 bpm) Interpretation Of ECG: normal intervals, normal axis, no ST or T wave changes O2 Sat by Pulse Oximetry: 100 (RA) Pulse Ox Interpretation: Normal - CT Scan/US CT Head Other Rad Studies (CT/US): Read By Radiologist, Radiology Report Reviewed CT/US Interpretation: Name:CHI COVINGTON Exam Date:Sep 19, 2018 3:31:31 AM EDT. Modality Type:CT\SR. Description:CT - BRAIN. Gender:F Laterality:Not applicable. :56 Refer ring Physician:Shanae More. EXAM: CT Head without Intravenous Contrast. CLINICAL HISTORY: Dizziness. TECHNIQUE: Axial computed tomography images of the head/brain without intravenous contrast. 1025 mGy-cm. COMPARISON: None provided. FINDINGS: BRAIN. No acute intraparenchymal hemorrhage. No mass lesion. No CT evidence for acute territorial infarct. No midline shift or extra- axial collections. VENTRICLES: No hydrocephalus. ORBITS: The orbits are unremarkable. SINUSES AND MASTOIDS: The paranasal sinuses and mastoid air cells are clear. BONES: No fracture. SOFT TISSUES: Unremarkable. IMPRESSION: No acute intracranial abnormality. Medical Decision Making Medical Decision Making: Impression: Intermittent dizziness Plan: --CMP --Troponin I --Magnesium --Phosphorous --CBC --UA --Chest x-ray --CT Head --IV fluids --Meclizine 25 mg PO --Reassess and dispo Labs reviewed, trop negative. CT scan negative. Patient informed of all findings. 5:50am On reevaluation patient is able to ambulate, states she feels better, and is comfortable being discharged home. Counseled regarding course of discharge, return precautions, and the importance of follow up. Disposition Counseled Patient/Family Regarding: Studies Performed, Diagnosis, Need For Followup - Disposition Disposition: HOME/ ROUTINE Disposition Time: 05:50 Condition: STABLE Additional Instructions: CHI COVINGTON, thank you for letting us take care of you today. Your provider was Maggie Castillo MD and you were treated for DIZZINESS LEFT ARM PAIN. The emergency medical care you received today was directed at your acute symptoms. If you were prescribed any medication, please fill it and take as directed. It may take several days for your symptoms to resolve. Return to the Emergency Department if your symptoms worsen, do not improve, or if you have any other problems. Please contact your doctor or call one of the physicians/clinics you have been referred to that are listed on the Patient Visit Information form that is included in your discharge packet. Bring any paperwork you were given at discharge with you along with any medications you are taking to your follow up visit. Our treatment cannot replace ongoing medical care by a primary care provider outside of the emergency department. Thank you for allowing the [facility] team to be part of your care today. If you had an X-Ray or CT scan: A Radiologist will review the ED reading if any change in treatment is needed we will contact you. If you had a blood, urine, or wound culture: It will take several days for the r esults, if any change in treatment is needed we will contact you. If you had an STI test: It will take 48 hours for the results. Please call after 1 week if you have not heard back. Instructions: Dizziness, Nonvertigo, (DC) Forms: [employer] (Japanese) Print Language: EMIRATI - POA Present On Arrival: None - Clinical Impression Clinical Impression: Dizziness - Scribe Statement The provider has reviewed the documentation as recorded by the Scribe (Kina Concepcion) Provider Attestation: All medical record entries made by the Scribe were at my direction and personally dictated by me. I have reviewed the chart and agree that the record accurately reflects my personal performance of the history, physical exam, medical decision making, and the department course for this patient. I have also personally directed, reviewed, and agree with the discharge instructions and disposition.
[2018-09-19 03:14] LABS: SQUAMOUS EPITHIAL 1 /hpf (0-5); URINE BACTERIA FEW (<OCC); URINE BILIRUBIN NEGATIVE (NEGATIVE); URINE BLOOD 1+ (NEGATIVE); URINE CLARITY Clear (Clear); URINE COLOR Yellow (YELLOW); URINE GLUCOSE (UA) 1+ mg/dL (Normal); URINE LEUKOCYTE ESTERASE TRACE Leu/uL (Negative); URINE PROTEIN NEGATIVE (NEGATIVE); URINE UROBILINOGEN NORMAL mg/dL (0.2-1.0)
[2018-09-19 05:58] VITALS: BP 138/75; PULSE 72; TEMP 97.6
[2018-09-19 06:13] VITALS: O2SAT 100
--- NOTE | 2018-09-19 08:14 | CT ---
Date of service: 09/19/2018 PROCEDURE: CT HEAD WITHOUT CONTRAST. HISTORY: dizziness COMPARISON: None available. TECHNIQUE: Axial computed tomography images were obtained through the head/brain without intravenous contrast. Radiation dose: Total exam DLP = 1025.81 mGy-cm. This CT exam was performed using one or more of the following dose reduction techniques: Automated exposure control, adjustment of the mA and/or kV according to patient size, and/or use of iterative reconstruction technique. FINDINGS: HEMORRHAGE: No intracranial hemorrhage. BRAIN: No mass effect or edema. Scattered focal lucencies in the subcortical and periventricular white matter suggestive for chronic microvascular ischemic change. Relative focal low attenuation seen at the level of the medulla best seen on series 4, image 4 which may represent streak attenuation artifact. Correlation with MRI is recommended if there is concern for acute ischemic change at this level. VENTRICLES: Unremarkable. No hydrocephalus. CALVARIUM: Unremarkable. PARANASAL SINUSES: Unremarkable as visualized. No significant inflammatory changes. MASTOID AIR CELLS: Unremarkable as visualized. No inflammatory changes. OTHER FINDINGS: None. IMPRESSION: Relative focal low attenuation seen at the level of the medulla best seen on series 4, image 4 which may represent streak attenuation artifact. Correlation with MRI is recommended if there is concern for acute ischemic change at this level. Chronic microvascular ischemic change. If symptoms persists, consider correlation with MRI. A preliminary report was generated at 5:01 a.m. on 09/19/[address] Mynor Urban from [employer].
--- NOTE | 2018-09-19 09:15 | RAD ---
Date of service: 09/19/2018 PROCEDURE: CHEST RADIOGRAPH, 1 VIEW HISTORY: Dizziness and arm pain. COMPARISON: Comparison chest 08/06/2017. FINDINGS: LUNGS: Poor inspiration with low lung volumes, crowded bronchovascular markings and mild bibasilar atelectasis. PLEURA: No pneumothorax or pleural fluid seen. CARDIOVASCULAR: Heart is mildly enlarged. No significant aortic atherosclerotic calcification. OSSEOUS STRUCTURES: No significant abnormalities. VISUALIZED UPPER ABDOMEN: Normal. OTHER FINDINGS: None. IMPRESSION: Mild bibasilar atelectasis.
--- NOTE | 2018-09-19 11:13 | CARD ---
APPROVED REPORT Date of service: 09/19/2018 EKG Measurement Heart [id number] <Conclusion> Normal sinus rhythm Normal ECG
== END 2018-09-19 06:07 | disposition home or self-care (01) ==
LOC: C.ER 00:44
DX: R42 Dizziness and giddiness (principal)
CPT/HCPCS: 70450; 71045; 80053; 81001; 83735; 84100; 84484; 85025; 93005; 96360; 99285; J7030

== ENCOUNTER 2018-10-19 10:09 | Inpatient (IN) | payer MEDICARE, MEDICAID ==
[2018-10-19 10:16] VITALS: BMI 41.5
--- NOTE | 2018-10-19 11:20 | C.PDOC ---
History Of Present Illness 63 year old female with PMHx of DMII, HTN (not on antihypertensives), and arthritis presents today for 3 days of chills, body aches, lethargy, and headache. Patient says the body aches are generalized and rates them 9/10. Patient says the headache comes and goes and is diffuse and rates it 7/10. Patient also admits to burning with urination for the past two weeks. Patient denies any hematuria. Patient denies chest pain, shortness of breath, nasal congestion, abdominal pain, nausea, vomiting, constipation, or diarrhea. <Chrystal Nunes - Last Filed: 10/19/18 16:44> <Inocente Magallanes - Last Filed: 10/19/18 15:54> History Per: Patient History/Exam Limitations: no limitations Onset/Duration Of Symptoms: Days Current Symptoms Are (Timing): Worse Severity: Moderate Pain Scale Rating Of: 7 Quality: Aching Preceeding Symptoms: None Associated Symptoms: Other. denies: Photophobia, Blurred Vision, Nausea, Vomiting Additional History Per: Family <Chrystal Nunes - Last Filed: 10/19/18 16:44> Time Seen by Provider: 10/19/18 11:20 Chief Complaint (Nursing): Headache Past Medical History Vital Signs: Last Vital Signs Temp 98.9 F 10/19/18 13:24 Pulse 74 10/19/18 15:31 Resp 18 10/19/18 15:31 BP 78/36 L 10/19/18 15:31 Pulse Ox 96 10/19/18 15:48 - [facility] Procedures PHYSICAL THERAPY NEC (02/26/15) <Inocente Magallanes - Last Filed: 10/19/18 15:54> Vital Signs: Last Vital Signs Temp 98 F 10/19/18 10:48 Pulse 86 10/19/18 10:48 Resp 18 10/19/18 10:48 BP 111/62 10/19/18 10:48 Pulse Ox 96 10/19/18 10:48 - Medical History PMH: Arthritis, Diabetes, HTN Surgical History: Other Surgeries: right knee surgery 18 years ago - [facility] Procedures PHYSICAL THERAPY NEC (02/26/15) Family History: States: Unknown Family Hx - Social History Hx Tobacco Use: Yes Hx Alcohol Use: Yes Hx Substance Use: No - Immunization History Hx Tetanus Toxoid Vaccination: No Hx Influenza Vaccination: No (Unknown) Hx Pneumococcal Vaccination: Yes <Chrystal Nunes - Last Filed: 10/19/18 16:44> Review Of Systems Except As Marked, All Systems Reviewed And Found Negative. Constitutional: Positive for: Chills. Negative for: Fever Cardiovascular: Negative for: Chest Pain, Palpitations Respiratory: Negative for: Cough, Shortness of Breath Gastrointestinal: Negative for: Nausea, Vomiting, Abdominal Pain, Diarrhea, Constipation Genitourinary: Positive for: Dysuria. Negative for: Hematuria Musculoskeletal: Positive for: Other (generalized body aches) Neurological: Negative for: Weakness, Numbness, Confusion, Dizziness <Chrystal Nunes - Last Filed: 10/19/18 16:44> Physical Exam - Physical Exam Appears: Non-toxic, In Acute Distress Skin: Normal Color, Warm, Dry Head: Atraumatic, Normacephalic Eye(s): bilateral: Normal Inspection Throat: Erythema (mild erythema) Chest: No Tenderness Cardiovascular: Rhythm Regular Respiratory: Normal Breath Sounds, No Decreased Breath Sounds, No Accessory Muscle Use, No Rales, No Rhonchi, No Wheezing Gastrointestinal/Abdominal: Normal Exam, Bowel Sounds, Soft, No Tenderness Back: Normal Inspection Extremity: No Tenderness, No Pedal Edema Neurological/Psych: Oriented x3 <Chrystal Nunes - Last Filed: 10/19/18 16:44> ED Course And Treatment - Laboratory Results Result Diagrams: 10/19/18 12:07 10/19/18 12:07 Lab Interpretation: Abnormal (UA 134 WBC's) - Radiology CXR: Interpreted by Me CXR Interpretation: Yes: No Acute Disease Reevaluation Time: 15:55 Reassessment Condition: Improved (remains asymptomatic. feels well, despite lower BP, which may be baseline for this pt- proper BP cuff and repeated b/l arms) - Physician Consult Information Outcome Of Conversation: 1315, 1600: d/w Dr. Rosas, ok to consult, will board in ICU but ok for Tele. 1330, 1530: d/w Dr. Prajapati, Cardio Consult, ok for lovenox, ICU per ICU consult. 1600: d/w Dr. Carranza, Medicine Director Fraud, ok to Tele <Inocente Magallanes - Last Filed: 10/19/18 15:54> - Laboratory Results Result Diagrams: 10/19/18 12:07 10/19/18 12:07 ECG: Interpreted By Me, Viewed By Me ECG Rhythm: Sinus Rhythm ECG Interpretation: Normal, No Acute Changes Interpretation Of ECG: NSR, no ST elevations, normal axis, normal intervals Rate From EC O2 Sat by Pulse Oximetry: 96 Pulse Ox Interpretation: Normal <Chrystal Nunes - Last Filed: 10/19/18 16:44> Medical Decision Making Medical Decision Making: NSTEMI Troponin elevated-.[id number]. EKG NSR with no ST elevations. Patient says she has tolerated Aspirin in the past with no allergy symptoms. Aspirin and Lovenox given. Medical Technologist Microbiology, Dr. Wood and Metals Analyst, Dr. Burks evaluated patient, help appreciated Patient denies any chest pain or shortness of breath. consider pericarditis, endocarditis. consider stress test. echo ordered Hypotension possibly baseline, low suspicion of sepsis denies dizziness or lightheadedness 1L NS bolus given x 2 lactate: .7 blood culture collected UTI Urinalysis: blood 1+, nitrate positive, leuk esterase 3+, wbc 134, rbc 13, bacteria occ WBC: 11 urine culture collected Rocephin 1gm iv given consider pyelonephritis, CT abd/ pelvis held off incase cardiac imaging with c ontrast needed <Chrystal Nunes - Last Filed: 10/19/18 16:44> Disposition Doctor Will See Patient In The: Hospital Counseled Patient/Family Regarding: Studies Performed, Diagnosis <Inocente Magallanes - Last Filed: 10/19/18 15:54> - Disposition Disposition Time: 15:45 <Chrystal Nunes - Last Filed: 10/19/18 16:44> - Disposition Disposition: HOSPITALIZED Condition: GUARDED - Clinical Impression Clinical Impression: UTI (urinary tract infection), NSTEMI (non-ST elevated myocardial infarction), Hypotension
[2018-10-19] MEDS ORDERED: Sodium Chloride 0.9% 1,000 ML IV ONE ×2 (12:01→14:29)
[2018-10-19] MEDS ORDERED: Sodium Chloride 0.9% 1,000 ML ONE (12:08)
[2018-10-19 12:11] LABS: BASO % 0.2 % (0.0-2.0); HEMOGLOBIN 12.2 g/dL (11.0-16.0); LYMPH % 9.3 % (20.0-40.0); MEAN CELL VOLUME 91.5 fL (81.0-99.0); MEAN CORPUSCULAR HEMOGLOBIN 30.9 pg (27.0-31.0); MEAN CORPUSCULAR HGB CONC 33.7 g/dL (33.0-37.0); MEAN PLATELET VOLUME 10.1 fL (7.2-11.7); MONO # 1.1 K/uL (0.0-0.8); NEUT # 8.9 K/uL (1.8-7.0); NEUT % 80.5 % (50.0-75.0); RBC 3.96 Mil/uL (3.80-5.20)
[2018-10-19 12:21] LABS: PLATELET COUNT 127 K/uL (130-400)
[2018-10-19 12:24] LABS: ALB/GLOB RATIO 1.2 (1.0-2.1); ALBUMIN 3.9 g/dL (3.5-5.0); ALT/SGPT 33 U/L (9-52); AST/SGOT 30 U/L (14-36); BLOOD UREA NITROGEN 12 mg/dL (7-17); CALCIUM 8.5 mg/dl (8.6-10.4); GFR NON-AFRICAN AMERICAN > 60
[2018-10-19 12:26] LABS: SQUAMOUS EPITHIAL 2 /hpf (0-5); URINE BACTERIA OCC (<OCC); URINE BILIRUBIN NEGATIVE (NEGATIVE); URINE BLOOD 1+ (NEGATIVE); URINE CLARITY Hazy (Clear); URINE COLOR Yellow (YELLOW); URINE GLUCOSE (UA) NORMAL (Normal); URINE LEUKOCYTE ESTERASE 3+ Leu/uL (Negative); URINE PROTEIN NEGATIVE (NEGATIVE); URINE UROBILINOGEN NORMAL mg/dL (0.2-1.0)
[2018-10-19] MEDS ORDERED: cefTRIAXone IV 1 gm in Dextros 50 ML IV STA (12:32)
[2018-10-19 12:37] LABS: B-TYPE NATRIURETIC PEPTIDE 1490 pg/mL (0-900)
[2018-10-19 13:06] LABS: LYMPHOCYTE 8 % (20-40); MONOCYTE 10 % (0-10); NEUTROPHIL 82 % (50-75); TOTAL CELLS COUNTED 100
[2018-10-19 13:07] LABS: LARGE PLATELETS PRESENT; PLATELET ESTIMATE SLIGHTLY DECREASED (NORMAL)
[2018-10-19] MEDS ORDERED: Enoxaparin 40 mg Syringe SC STA (13:13)
[2018-10-19] MEDS ORDERED: Aspirin 325 mg EC Tablets PO STA (13:13)
[2018-10-19] MEDS ORDERED: cefTRIAXone 1 gm 1 GM/100 ML BAG IVPB ONE (13:25)
[2018-10-19] MEDS ORDERED: Aspirin 325 mg EC Tablets PO ONE (13:25)
[2018-10-19] MEDS ORDERED: Enoxaparin 100 mg Syringe ONE (13:26)
[2018-10-19 13:38] LABS: INR 1.2; PROTHROMBIN TIME 12.6 SECONDS (9.7-12.2)
--- NOTE | 2018-10-19 13:50 | RAD ---
Date of service: 10/19/2018 HISTORY: Fever. Admission. COMPARISON: Comparison chest 09/19/2018. FINDINGS: LUNGS: No active pulmonary disease. PLEURA: No significant pleural effusion identified, no pneumothorax apparent. CARDIOVASCULAR: No discernible aortic atherosclerotic calcification present. Normal cardiac size. No pulmonary vascular congestion. OSSEOUS STRUCTURES: No significant abnormalities. VISUALIZED UPPER ABDOMEN: Normal. OTHER FINDINGS: None. IMPRESSION: No active disease.
[2018-10-19 14:53] LABS: VENOUS BLOOD GAS BASE EXCESS -9.2 mmol/L (0.0-2.0); VENOUS BLOOD GAS PCO2 29 mmHg (40-60); VENOUS BLOOD GAS PO2 34 mm/Hg (30-55); VENOUS BLOOD PH 7.33 (7.32-7.43)
[2018-10-19] MEDS ORDERED: Enoxaparin 40 mg Syringe SC SCH (15:00)
--- NOTE | 2018-10-19 18:23 | CP.PCM.CON ---
History of Present Illness - History of Present Illness History of Present Illness: 63yo F. PMHx HTN, DM, arthritis, pyelonephritis. p/w recurrent UTI. Has had dysuria and oliguria x 2 weeks. p/w nausea and vomiting, with total body aches. Past Patient History - Infectious Disease Hx of Infectious Diseases: None - Past Medical History & Family History Past Medical History?: Yes - Past Social History Smoking Status: Never Smoked - CARDIAC Hx Hypertension: Yes - ENDOCRINE/METABOLIC Hx Endocrine Disorders: Yes Hx Diabetes Mellitus Type 2: Yes - MUSCULOSKELETAL/RHEUMATOLOGICAL Hx Arthritis: Yes - GENITOURINARY/GYNECOLOGICAL Other/Comment: "sx on ovary" - PSYCHIATRIC Hx Substance Use: No - SURGICAL HISTORY Hx Surgeries: Yes Hx Orthopedic Surgery: Yes (knee) Hx Tubal Ligation: Yes Other/Comment: rt knee pain. ovarian sx - ANESTHESIA Hx Anesthesia: Yes Hx Anesthesia Reactions: No Meds Allergies/Adverse Reactions: Allergies Allergy/AdvReac Type Severity Reaction Status Date / Time ibuprofen Allergy SWELLING Verified 10/19/18 10:15 naproxen Allergy Verified 10/19/18 13:34 - Medications Medications: Current Medications Acetaminophen (Tylenol 325mg Tab) 650 mg PO Q6H PRN PRN Reason: Fever >100.4 F Enoxaparin Sodium (Lovenox) 40 mg SC DAILY JEAN PAUL Last Admin: 10/19/18 17:30 Dose: 40 mg Lactated Ringer's (Lactated Ringer's) 1,000 mls @ 125 mls/hr IV .Q8H JEAN PAUL Piperacillin Sod/Tazobactam Sod (Zosyn 3.375 Gm Iv Premix) 3.375 gm in 50 mls @ 100 mls/hr IVPB Q6H JEAN PAUL; Protocol Rosuvastatin Calcium (Crestor) 20 mg PO HS JEAN PAUL Results - Vital Signs Recent Vital Signs: Last Vital Signs Temp 97.8 F 10/19/18 16:19 Pulse 71 10/19/18 16:19 Resp 18 10/19/18 16:19 BP 86/44 L 10/19/18 16:19 Pulse Ox 96 10/19/18 16:44 - Labs Result Diagrams: 10/19/18 12:07 10/19/18 12:07 Labs: Laboratory Results - last 24 hr 10/19/18 10/19/18 10/19/18 12:07 12:07 12:13 WBC 11.0 H RBC 3.96 Hgb 12.2 Hct 36.3 MCV 91.5 MCH 30.9 MCHC 33.7 RDW 14.0 Plt Count 127 L D MPV 10.1 Neut % (Auto) 80.5 H Lymph % (Auto) 9.3 L Holmes % (Auto) 10.0 Eos % (Auto) 0.0 Baso % (Auto) 0.2 Neut # (Auto) 8.9 H Lymph # (Auto) 1.0 Holmes # (Auto) 1.1 H Eos # (Auto) 0.0 Baso # (Auto) 0.0 Neutrophils % (Manual) 82 H Lymphocytes % (Manual) 8 L Monocytes % (Manual) 10 Platelet Estimate Slightly decreased L Large Platelets Present PT INR APTT D-Dimer, Quantitative pO2 VBG pH VBG pCO2 VBG HCO3 VBG Total CO2 VBG O2 Sat (Calc) VBG Base Excess VBG Potassium Glucose Lactate Crit Value Called To Crit Value Called By Crit Value Read Back Blood Gas Notified Time Sodium 135 Potassium 3.8 Chloride 102 Carbon Dioxide 24 Anion Gap 13 BUN 12 Creatinine 0.7 Est GFR ( Amer) > 60 Est GFR (Non-Af Amer) > 60 Random Glucose 154 H Calcium 8.5 L Total Bilirubin 1.2 AST 30 ALT 33 Alkaline Phosphatase 131 H D Troponin I 0.4380 H* NT-Pro-B Natriuret Pep 1490 H Total Protein 7.0 Albumin 3.9 Globulin 3.2 Albumin/Globulin Ratio 1.2 Venous Blood Potassium Urine Color Yellow Urine Clarity Hazy Urine pH 6.0 Ur Specific [place] 1.005 Urine Protein Negative Urine Glucose (UA) Normal Urine Ketones Negative Urine Blood 1+ H Urine Nitrate Positive H Urine Bilirubin Negative Urine Urobilinogen Normal Ur Leukocyte Esterase 3+ H Urine WBC (Auto) 134 H Urine RBC (Auto) 13 H Ur Squamous Epith Cells 2 Urine Bacteria Occ H 10/19/18 10/19/18 10/19/18 13:20 14:47 15:00 WBC RBC Hgb Hct MCV MCH MCHC RDW Plt Count MPV Neut % (Auto) Lymph % (Auto) Holmes % (Auto) Eos % (Auto) Baso % (Auto) Neut # (Auto) Lymph # (Auto) Holmes # (Auto) Eos # (Auto) Baso # (Auto) Neutrophils % (Manual) Lymphocytes % (Manual) Monocytes % (Manual) Platelet Estimate Large Platelets PT 12.6 H INR 1.2 APTT 37 H D-Dimer, Quantitative 551 H pO2 34 VBG pH 7.33 VBG pCO2 29 L VBG HCO3 16.7 VBG Total CO2 16.2 L VBG O2 Sat (Calc) 73.1 H VBG Base Excess -9.2 L VBG Potassium 1.9 L* Glucose 109 H Lactate 0.7 Crit Value Called To brian Reed Crit Value Called By Chiquita to rrt Crit Value Read Back Y Blood Gas Notified Time 1453 Sodium 152.0 H Potassium Chloride 119.0 H Carbon Dioxide Anion Gap BUN Creatinine Est GFR ( Amer) Est GFR (Non-Af Amer) Random Glucose Calcium Total Bilirubin AST ALT Alkaline Phosphatase Troponin I NT-Pro-B Natriuret Pep Total Protein Albumin Globulin Albumin/Globulin Ratio Venous Blood Potassium 1.9 L* Urine Color Urine Clarity Urine pH Ur Specific [place] Urine Protein Urine Glucose (UA) Urine Ketones Urine Blood Urine Nitrate Urine Bilirubin Urine Urobilinogen Ur Leukocyte Esterase Urine WBC (Auto) Urine RBC (Auto) Ur Squamous Epith Cells Urine Bacteria Assessment & Plan (1) UTI (urinary tract infection) Assessment and Plan: 63yo F. PMHx HTN, DM, arthritis, pyelonephritis. p/w recurrent UTI. Neuro: alert and oriented x 3 Pulm: no acute issues, breathing spontaneously on room air CV: hemodynamically labile, fluctuating from hypotension to hypertension. o verall asymptomatic, with low lactate level. Hem: no acute issues Renal: oliguria, given 2 Liters in ED, continue LR@125 Endo: DM type 2, SISS for coverage GI: NPO ID: UTI with sepsis, Zosyn. CT abdomen to r/o pyelonephritis. DVT proph - lovenox GI proph - not currently indicated ryan for strict I/O's during acute illness Code status - full code Patient is clinically stable for continued management on telemetry floors, please reconsult ICU if clinical status changes. Critical Care Time spent 35 minutes Multi-disciplinary rounds were performed with house staff, nursing, speech therapy, respiratory therapy, pharmacy and nutrition with integrated input from the primary team/attending and other consulting services. The documented time is cumulative and includes review of patient data/exams/labs/chart review and examination of the patient on rounds and throughout the day; time is exclusive of any procedures or teaching time. Status: Acute
[2018-10-19] MEDS ORDERED: Dextrose 50% SYRINGE Inj (50 ml) IV PRN (18:34)
[2018-10-19] MEDS ORDERED: Glucagon Recombinant 1 mg Inj IM PRN (18:34)
[2018-10-19] MEDS ORDERED: Piperacillin/Tazobact 3.375 GM in Sodium Chloride 100 ML IVPB SCH (18:45)
[2018-10-19] MEDS: Lactated Ringer's 1,000 ML IV SCH (18:52)
[2018-10-19] MEDS: (Novolog) Insulin Aspart, Recombinant 100 u/ml 10 ml vial SC SCH (19:04)
[2018-10-19 19:42] LABS: CK-MB 1.07 ng/mL (0.0-3.38); TROPONIN I 0.132 ng/mL (0.00-0.120)
[2018-10-19] MEDS: Piperacill/Tazo 3.375gm in Dex 3.375 GM/50 ML BAG IVPB SCH (19:58)
--- NOTE | 2018-10-19 20:48 | CON ---
DATE: 10/19/2018 REASON FOR CONSULTATION: Borderline troponin elevation. HISTORY OF PRESENT ILLNESS: The patient is a 63-year-old female, who has a history of diabetes mellitus and morbid obesity as well as osteoarthritis. The patient of generalized body aches, headache, and chilly feeling. The patient also reported burning urination. The patient is unaware of any prior cardiac history or history of DVT in the past. SOCIAL HISTORY: Nonsmoker and nondrinker. MEDICATIONS: Home medications include metformin, sulindac, and pioglitazone. REVIEW OF SYSTEMS: No nausea or vomiting. No dizziness or syncope. PHYSICAL EXAMINATION: GENERAL: The patient is a middle-aged female, who does not appears to be in acute distress. VITAL SIGNS: Blood pressure 85/31, heart rate 75, temperature 98.9, and respirations 20. HEENT: Normocephalic. CHEST: Clear. HEART: S1 and S2 regular and distant. ABDOMEN: Soft. EXTREMITIES: No calf tenderness and trace pedal edema. LABORATORY DATA: EKG revealed normal sinus rhythm. SMA-7: Sodium 135, potassium 3.8, chloride 102, CO2 of 24, glucose 154, BUN 12, and creatinine 0.7. Troponin is 0.43. ProBNP is 14,090. INR is 1.2, PTT 37. Hemoglobin and hematocrit 12.2 and 36.3, white count 11, and platelet count 127,000. Chest x-ray was unremarkable. Urinalysis was positive for leukocyte esterase, large WBC's and large RBC's, and positive for urine bacteria. ASSESSMENT: 1. Borderline troponin elevation, rule out non-ST elevation myocardial infarction. 2. Rule out pulmonary infarction. 3. Morbid obesity. 4. Urinary tract infection. 5. Uncontrolled diabetes mellitus. 6. Mild hypocalcemia. 7. Borderline hypotension. RECOMMENDATIONS: Continue normal saline infusion at 100 mL an hour. The patient did receive aspirin 325 mg as a STAT dose in the emergency room as well as 1 g of IV Rocephin. Obtain 2 sets of blood cultures as well as urine culture. Monitor daily EKGs and obtain an echocardiogram. Obtain serum D-dimer and start Crestor at 40 mg daily. I will hold on beta-clifton therapy because of borderline hypotension for now. The patient is being evaluated for ICU admission. Go Wood MD
--- NOTE | 2018-10-19 23:53 | CP.PCM.HP ---
Past Patient History - Infectious Disease Hx of Infectious Diseases: None - Past Medical History & Family History Past Medical History?: Yes - Past Social History Smoking Status: Never Smoked - CARDIAC Hx Hypertension: Yes - PULMONARY Hx Asthma: Yes - NEUROLOGICAL Hx Neurological Disorder: No - HEENT Hx HEENT Problems: No - RENAL Hx Chronic Kidney Disease: No - ENDOCRINE/METABOLIC Hx Endocrine Disorders: Yes Hx Diabetes Mellitus Type 2: Yes - HEMATOLOGICAL/ONCOLOGICAL Hx Blood Disorders: No - INTEGUMENTARY Hx Dermatological Problems: No - MUSCULOSKELETAL/RHEUMATOLOGICAL Hx Arthritis: Yes - GASTROINTESTINAL Hx Gastrointestinal Disorders: No - GENITOURINARY/GYNECOLOGICAL Other/Comment: "sx on ovary" - PSYCHIATRIC Hx Substance Use: No - SURGICAL HISTORY Hx Surgeries: Yes Hx Orthopedic Surgery: Yes (knee) Hx Tubal Ligation: Yes Other/Comment: rt knee pain. ovarian sx - ANESTHESIA Hx Anesthesia: Yes Hx Anesthesia Reactions: No Meds Allergies/Adverse Reactions: Allergies Allergy/AdvReac Type Severity Reaction Status Date / Time ibuprofen Allergy SWELLING Verified 10/19/18 10:15 naproxen Allergy Verified 10/19/18 13:34 Results - Vital Signs Recent Vital Signs: Last Vital Signs Temp 97.9 F 10/19/18 20:00 Pulse 121 H 10/19/18 20:00 Resp 24 10/19/18 20:00 BP 117/45 L 10/19/18 20:00 Pulse Ox 96 10/19/18 20:00 - Labs Result Diagrams: 10/19/18 12:07 10/19/18 12:07 Labs: Laboratory Results - last 24 hr 10/19/18 10/19/18 10/19/18 12:07 12:07 12:13 WBC 11.0 H RBC 3.96 Hgb 12.2 Hct 36.3 MCV 91.5 MCH 30.9 MCHC 33.7 RDW 14.0 Plt Count 127 L D MPV 10.1 Neut % (Auto) 80.5 H Lymph % (Auto) 9.3 L [place] % (Auto) 10.0 Eos % (Auto) 0.0 Baso % (Auto) 0.2 Neut # (Auto) 8.9 H Lymph # (Auto) 1.0 [place] # (Auto) 1.1 H Eos # (Auto) 0.0 Baso # (Auto) 0.0 Neutrophils % (Manual) 82 H Lymphocytes % (Manual) 8 L Monocytes % (Manual) 10 Platelet Estimate Slightly decreased L Large Platelets Present PT INR APTT D-Dimer, Quantitative pO2 VBG pH VBG pCO2 VBG HCO3 VBG Total CO2 VBG O2 Sat (Calc) VBG Base Excess VBG Potassium Glucose Lactate Crit Value Called To Crit Value Called By Crit Value Read Back Blood Gas Notified Time Sodium 135 Potassium 3.8 Chloride 102 Carbon Dioxide 24 Anion Gap 13 BUN 12 Creatinine 0.7 Est GFR ( Amer) > 60 Est GFR (Non-Af Amer) > 60 POC Glucose (mg/dL) Random Glucose 154 H Lactic Acid Calcium 8.5 L Total Bilirubin 1.2 AST 30 ALT 33 Alkaline Phosphatase 131 H D Total Creatine Kinase CK-MB (Mass) Troponin I 0.4380 H* NT-Pro-B Natriuret Pep 1490 H Total Protein 7.0 Albumin 3.9 Globulin 3.2 Albumin/Globulin Ratio 1.2 Venous Blood Potassium Urine Color Yellow Urine Clarity Hazy Urine pH 6.0 Ur Specific Kathleen 1.005 Urine Protein Negative Urine Glucose (UA) Normal Urine Ketones Negative Urine Blood 1+ H Urine Nitrate Positive H Urine Bilirubin Negative Urine Urobilinogen Normal Ur Leukocyte Esterase 3+ H Urine WBC (Auto) 134 H Urine RBC (Auto) 13 H Ur Squamous Epith Cells 2 Urine Bacteria Occ H 10/19/18 10/19/18 10/19/18 13:20 14:47 15:00 WBC RBC Hgb Hct MCV MCH MCHC RDW Plt Count MPV Neut % (Auto) Lymph % (Auto) [place] % (Auto) Eos % (Auto) Baso % (Auto) Neut # (Auto) Lymph # (Auto) [place] # (Auto) Eos # (Auto) Baso # (Auto) Neutrophils % (Manual) Lymphocytes % (Manual) Monocytes % (Manual) Platelet Estimate Large Platelets PT 12.6 H INR 1.2 APTT 37 H D-Dimer, Quantitative 551 H pO2 34 VBG pH 7.33 VBG pCO2 29 L VBG HCO3 16.7 VBG Total CO2 16.2 L VBG O2 Sat (Calc) 73.1 H VBG Base Excess -9.2 L VBG Potassium 1.9 L* Glucose 109 H Lactate 0.7 Crit Value Called To brian Reed Crit Value Called By Chiquita to rrt Crit Value Read Back Y Blood Gas Notified Time 1453 Sodium 152.0 H Potassium Chloride 119.0 H Carbon Dioxide Anion Gap BUN Creatinine Est GFR ( Amer) Est GFR (Non-Af Amer) POC Glucose (mg/dL) Random Glucose Lactic Acid Calcium Total Bilirubin AST ALT Alkaline Phosphatase Total Creatine Kinase CK-MB (Mass) Troponin I NT-Pro-B Natriuret Pep Total Protein Albumin Globulin Albumin/Globulin Ratio Venous Blood Potassium 1.9 L* Urine Color Urine Clarity Urine pH Ur Specific Kathleen Urine Protein Urine Glucose (UA) Urine Ketones Urine Blood Urine Nitrate Urine Bilirubin Urine Urobilinogen Ur Leukocyte Esterase Urine WBC (Auto) Urine RBC (Auto) Ur Squamous Epith Cells Urine Bacteria 10/19/18 10/19/18 10/19/18 18:51 18:51 18:53 WBC RBC Hgb Hct MCV MCH MCHC RDW Plt Count MPV Neut % (Auto) Lymph % (Auto) [place] % (Auto) Eos % (Auto) Baso % (Auto) Neut # (Auto) Lymph # (Auto) [place] # (Auto) Eos # (Auto) Baso # (Auto) Neutrophils % (Manual) Lymphocytes % (Manual) Monocytes % (Manual) Platelet Estimate Large Platelets PT INR APTT D-Dimer, Quantitative pO2 VBG pH VBG pCO2 VBG HCO3 VBG Total CO2 VBG O2 Sat (Calc) VBG Base Excess VBG Potassium Glucose Lactate Crit Value Called To Crit Value Called By Crit Value Read Back Blood Gas Notified Time Sodium Potassium Chloride Carbon Dioxide Anion Gap BUN Creatinine Est GFR ( Amer) Est GFR (Non-Af Amer) POC Glucose (mg/dL) 117 H Random Glucose Lactic Acid 2.9 H Calcium Total Bilirubin AST ALT Alkaline Phosphatase Total Creatine Kinase 65 CK-MB (Mass) 1.07 Troponin I 0.1320 H* NT-Pro-B Natriuret Pep Total Protein Albumin Globulin Albumin/Globulin Ratio Venous Blood Potassium Urine Color Urine Clarity Urine pH Ur Specific Kathleen Urine Protein Urine Glucose (UA) Urine Ketones Urine Blood Urine Nitrate Urine Bilirubin Urine Urobilinogen Ur Leukocyte Esterase Urine WBC (Auto) Urine RBC (Auto) Ur Squamous Epith Cells Urine Bacteria
[2018-10-20] MEDS: Piperacill/Tazo 3.375gm in Dex 3.375 GM/50 ML BAG IVPB SCH ×4 (00:31→18:34)
[2018-10-20] MEDS: Lactated Ringer's 1,000 ML IV SCH ×4 (04:05→21:18)
--- NOTE | 2018-10-20 05:35 | HP ---
CHIEF COMPLAINT: Weakness, tiredness, chills for three days. HISTORY OF PRESENT ILLNESS: This is a 63-year-old female with a history of type 2 diabetes, hypertension, osteoarthritis, morbidly obese who is compliant with her diet, medication and followup. On last three days, she has been having fever, chills, rigor, body aches, tiredness, headache, dizziness, malaise, and fatigue. According to the patient, she has on and off headache. She also had a history of abdominal pain, dysuria, and frequency of urination. She denies any pyuria or hematuria. She denies any chest pain. She has palpitation and weakness. She denies any shortness of breath. She denies any nasal congestion. She denies any diarrhea. She has nausea, no vomiting. She denies any history of trauma, fall, or loss of consciousness. She denies any sneezing, itchy eyes, or itchy nose. She gets tingling and numbness in the feet. She denies any joint pain or hip pain. She denies any history of chest pain. PAST MEDICAL HISTORY: Type 2 diabetes, hypertension, morbid obesity. CURRENT MEDICATIONS: At home, sulindac, Actos, and metformin. ALLERGIES: THE PATIENT IS ALLERGIC TO NAPROSYN AND IBUPROFEN. PHYSICAL EXAMINATION: GENERAL: An elderly female, in [id number] respiratory distress. She is obese. She is restless. VITAL SIGNS: Blood pressure 117/45, pulse 120, respiratory rate 24, temperature 100.7. SKIN: Senile turgor. No bruises, no purpura, no petechiae. HEENT: Atraumatic, normocephalic. Negative pallor. Negative jaundice. Extraocular movements are intact. NECK: Supple. No JVD. No lymph node. No thyromegaly. CHEST WALL: Bilateral symmetrical expansion. No deformity. BREASTS: No masses. LUNGS: Bilaterally clear. No rales. No rhonchi. CARDIOVASCULAR SYSTEM: PMI in the fifth intercostal space. S1 and S2 are regular. Tachycardic. ABDOMEN: Soft, nontender. Bowel sounds are positive. PELVIC: Deferred. RECTAL: Deferred. CENTRAL NERVOUS SYSTEM: The patient is awake, alert and oriented x3. Cranial nerves II through XII are normal. Power 5/5 x4. Plantars are downgoing. ASSESSMENT: 1. Urinary tract infection, rule out septicemia. 2. Dehydration. 3. Acute coronary syndrome or acute myocardial infarction. 4. Morbid obesity. PLAN: Admit. Detailed orders written. Seen and examined. Fer Carranza MD
[2018-10-20] MEDS: (Novolog) Insulin Aspart, Recombinant 100 u/ml 10 ml vial SC SCH ×5 (08:22→22:00)
[2018-10-20 08:26] LABS: BASO % 0.2 % (0.0-2.0); HEMOGLOBIN 10.9 g/dL (11.0-16.0); LYMPH # 1.1 K/uL (1.0-4.3); MEAN CELL VOLUME 92.1 fL (81.0-99.0); MEAN CORPUSCULAR HEMOGLOBIN 30.5 pg (27.0-31.0); MEAN CORPUSCULAR HGB CONC 33.2 g/dL (33.0-37.0); MONO # 1.1 K/uL (0.0-0.8); MONO % 7.3 % (0.0-10.0); NEUT # 13.2 K/uL (1.8-7.0); NEUT % 85.5 % (50.0-75.0); PLATELET COUNT 115 K/uL (130-400); RBC 3.56 Mil/uL (3.80-5.20); RED CELL DISTRIBUTION WIDTH 14.5 % (11.5-14.5); WHITE BLOOD COUNT 15.5 K/uL (4.8-10.8)
[2018-10-20 08:32] LABS: ALB/GLOB RATIO 1.2 (1.0-2.1); ALBUMIN 3.4 g/dL (3.5-5.0); ALT/SGPT 28 U/L (9-52); AST/SGOT 34 U/L (14-36); BLOOD UREA NITROGEN 13 mg/dL (7-17); CALCIUM 8.2 mg/dl (8.6-10.4); GFR NON-AFRICAN AMERICAN > 60
[2018-10-20] MEDS: Enoxaparin 100 mg Syringe SC SCH (09:23)
[2018-10-20 09:32] LABS: ANISOCYTOSIS SLIGHT; BANDS 16 % (0-2); HYPOCHROMIC SLIGHT; LYMPHOCYTE 5 % (20-40); MONOCYTE 4 % (0-10); NEUTROPHIL 75 % (50-75); PLATELET ESTIMATE SLIGHTLY DECREASED (NORMAL); POLYCHROMIC SLIGHT; TOTAL CELLS COUNTED 100; TOXIC GRANULATION PRESENT
[2018-10-20] MEDS ORDERED: Metoprolol Succinate 25 mg XL Tab PO SCH (10:00)
--- NOTE | 2018-10-20 16:25 | PN ---
DATE: 10/20/2018 SUBJECTIVE: The patient denies any chest pain or shortness of breath. She is still experiencing burning urination. No reported arrhythmia. Hypotension has improved. PHYSICAL EXAMINATION VITAL SIGNS: Blood pressure 116/68, heart rate 82, temperature 97.8, respirations 14. HEENT: Normocephalic. CHEST: Clear. HEART: S1 and S2 regular. EXTREMITIES: Trace leg edema. LABORATORY DATA: Today's SMA-7 is within normal limits, except for glucose 146 and carbon dioxide of 19, calcium is 8.2, troponin was 0.438, 0.132, and 0.212 in the sequence. D-dimer is elevated 551. Today's hemoglobin and hematocrit are 10.9 and 32.7, white count 15.5, platelet count 115,000. Venous Doppler of lower extremity was performed, the report is still pending. Echocardiogram study was performed today, however, it was not accessible on the [facility]. ASSESSMENT AND PLAN: 1. Urinary tract infection. 2. Borderline troponin elevation, rule out non-ST elevation myocardial infarction. 3. Rule out pulmonary infarction. 4. Consider underlying sepsis. The patient's lactic acid is elevated to 2.9. 5. Improved hypotension. RECOMMENDATIONS: Continue Crestor at 20 mg once a day, continue IV lactate ringers at 125 mL/hour, Lovenox 100 mg subcutaneously daily, Zosyn at 3.375 g intravenously every 6 hours. I would follow post echo and venous Doppler reports. I requested for serial EKG and CT angio of the chest to rule out pulmonary embolism. Go Wood MD
[2018-10-20] MEDS ORDERED: Iodixanol 320 MG/ML 100 ML BOTTLE IV ONE (16:48)
--- NOTE | 2018-10-20 20:24 | CP.PCM.PN ---
Subjective - Subjective Subjective: dictated Objective - Vital Signs/Intake and Output Vital Signs (last 24 hours): Temp Pulse Resp BP Pulse Ox 98.9 F 85 14 116/68 100 10/20/18 17:34 10/20/18 18:00 10/20/18 08:00 10/20/18 08:00 10/20/18 08:00 Intake and Output: 10/20/18 10/21/18 18:59 06:59 Intake Total 1785 115 Output Total 1295 180 Balance 490 -65 - Medications Medications: Current Medications Acetaminophen (Tylenol 325mg Tab) 650 mg PO Q6H PRN PRN Reason: Fever >100.4 F Last Admin: 10/20/18 16:34 Dose: 650 mg Acetaminophen (Tylenol 325mg Tab) 650 mg PO Q4H PRN PRN Reason: Fever >100.4 F Dextrose (Dextrose 50% Inj) 0 ml IV STAT PRN; Protocol PRN Reason: Hypoglycemia Protocol Dextrose (Glutose 15) 0 gm PO ONCE PRN; Protocol PRN Reason: Hypoglycemia Protocol Enoxaparin Sodium (Lovenox) 100 mg SC DAILY [facility] Last Admin: 10/20/18 09:23 Dose: 100 mg Glucagon (Glucagen Diagnostic Kit) 0 mg IM STAT PRN; Protocol PRN Reason: Hypoglycemia Protocol Lactated Ringer's (Lactated Ringer's) 1,000 mls @ 125 mls/hr IV .Q8H [facility] Last Admin: 10/20/18 11:59 Dose: 125 mls/hr Piperacillin Sod/Tazobactam Sod (Zosyn 3.375 Gm Iv Premix) 3.375 gm in 50 mls @ 100 mls/hr IVPB Q6H JEAN PAUL; Protocol Last Admin: 10/20/18 18:34 Dose: 100 mls/hr Dextrose (Dextrose 5% In Water 1000 Ml) 1,000 mls @ 0 mls/hr IV .Q0M PRN; Protocol PRN Reason: Hypoglycemia Protocol Influenza Virus Vaccine (Fluzone Quad [id number]) 60 mcg IM .ONCE ONE Stop: 10/22/18 10:01 Insulin Aspart (Novolog) 0 unit SC [facility]; Protocol Last Admin: 10/20/18 16:35 Dose: Not Given Ondansetron HCl (Zofran Inj) 4 mg IVP Q6H PRN PRN Reason: Nausea/Vomiting Pneumococcal Polyvalent Vaccine (Pneumovax 23 Vaccine) 0.5 ml IM .ONCE ONE Stop: 10/22/18 10:01 Rosuvastatin Calcium (Crestor) 20 mg PO HS [facility] Last Admin: 10/19/18 22:59 Dose: 20 mg - Labs Labs: 10/20/18 08:18 10/20/18 05:41 PT 12.6 SECONDS (9.7-12.2) H 10/19/18 13:20 INR 1.2 10/19/18 13:20 APTT 37 SECONDS (21-34) H 10/19/18 13:20
--- NOTE | 2018-10-20 21:08 | CT ---
CT chest pulmonary angiogram HISTORY: Urinary tract infection. Evaluate for pulmonary embolism. Shortness of breath. COMPARISON: None available. Technique: CT chest pulmonary angiogram was performed utilizing multiple contiguous axial images through the chest with the use of intravenous contrast according to pulmonary embolism protocol. Sagittal and coronal as well as sagittal and coronal MIPS reformatted images were obtained. This CT exam was performed using one or more of the following dose reduction techniques: Automated exposure control, adjustment of the mA and/or kV according to patient size, and/or use of iterative reconstruction technique. Findings: Markedly limited study secondary to suboptimal contrast timing bolus as well as prominent patient and motion artifact. Evaluation for segmental and subsegmental pulmonary emboli is markedly limited given the suboptimal contrast timing bolus. No gross central pulmonary embolism; however, evaluation for segmental and subsegmental branches is markedly limited on this study. For example, questionable filling defects within segmental branches of the right pulmonary artery for example on series 2, images 95 through 100 within the right middle lobe may represent artifact. Additional questionable filling defects seen within segmental branches of the right lower lobe as seen on series 2 images 90 thrue 112 may also be artifactual. In addition, a questionable filling defect seen within segmental branches of the left lower lobe pulmonary artery for example on series 2, image 98 may also be artifactual. Repeat study and or correlation with V/Q scan may be helpful if clinically indicated. Visualized aorta is grossly preserved. No significant axillary adenopathy. Heterogeneity of the thyroid. Few shotty mediastinal lymph nodes. No significant hilar adenopathy. No pleural or pericardial effusion. Perinephric fat stranding bilaterally. Clinical correlation. Degenerative changes in the spine. Trachea thru central airways are patent. Right lung: Atelectasis at the right lung base. Left lung: Atelectasis at the left lung base. Impression: No gross central pulmonary embolism; however, evaluation for segmental and subsegmental branches is markedly limited on this study. For example, questionable filling defects within segmental branches of the right pulmonary artery for example on series 2, images 95 through 100 within the right middle lobe may represent artifact. Additional questionable filling defects seen within segmental branches of the right lower lobe as seen on series 2 images 90 thrue 112 may also be artifactual. In addition, a questionable filling defect seen within segmental branches of the left lower lobe pulmonary artery for example on series 2, image 98 may also be artifactual. Repeat study and or correlation with V/Q scan may be helpful if clinically indicated. Perinephric fat stranding bilaterally. Clinical correlation. A preliminary report was generated at 5:49 p.m. on 10/20/[address] Juan Israel from [facility].
[2018-10-21] MEDS: Piperacill/Tazo 3.375gm in Dex 3.375 GM/50 ML BAG IVPB SCH ×4 (00:55→18:16)
--- NOTE | 2018-10-21 02:20 | PN ---
DATE: 10/20/2018 SUBJECTIVE: The patient is feeling better. Afebrile. She still has chills. Less tachycardic. No shortness of breath. No chest pain. PHYSICAL EXAMINATION VITAL SIGNS: Blood pressure 132/80, pulse 88, respiratory rate 20, temperature 98.9 and T-max is 100.9. LUNGS: Clear. No rales. No rhonchi. CARDIOVASCULAR SYSTEM: S1 and S2 regular. ABDOMEN: Soft. ASSESSMENT: 1. Urosepsis. Blood cultures are negative. Urine cultures are positive. Pending identity. 2. Dehydration. 3. Acute coronary syndrome. 4. Hypertension. 5. Type 2 diabetes. PLAN: Continue current medications. Monitor the patient. Fer Carranza MD
[2018-10-21] MEDS: Lactated Ringer's 1,000 ML IV SCH ×4 (06:01→17:07)
[2018-10-21] MEDS: (Novolog) Insulin Aspart, Recombinant 100 u/ml 10 ml vial SC SCH ×4 (09:20→21:24)
[2018-10-21] MEDS: Enoxaparin 100 mg Syringe SC SCH ×3 (10:27→18:16)
[2018-10-21 12:47] LABS: BASO # 0.1 K/uL (0.0-0.2); BASO % 0.8 % (0.0-2.0); EOS % 0.6 % (0.0-4.0); HEMOGLOBIN 9.8 g/dL (11.0-16.0); LYMPH # 1.4 K/uL (1.0-4.3); LYMPH % 20.6 % (20.0-40.0); MEAN CORPUSCULAR HEMOGLOBIN 31.3 pg (27.0-31.0); MEAN PLATELET VOLUME 10.5 fL (7.2-11.7); MONO # 0.6 K/uL (0.0-0.8); MONO % 8.5 % (0.0-10.0); NEUT # 4.7 K/uL (1.8-7.0); NEUT % 69.5 % (50.0-75.0); NRBC % 0.1 % (0.0-2.0); RBC 3.14 Mil/uL (3.80-5.20); RED CELL DISTRIBUTION WIDTH 14.9 % (11.5-14.5); WHITE BLOOD COUNT 6.7 K/uL (4.8-10.8)
[2018-10-21 13:04] LABS: BLOOD UREA NITROGEN 6 mg/dL (7-17); CALCIUM 7.4 mg/dl (8.6-10.4); GFR NON-AFRICAN AMERICAN > 60
--- NOTE | 2018-10-21 14:56 | PN ---
DATE: 10/21/2018 SUBJECTIVE: The patient denies any chest pain. Dysuria has improved. No reported ventricular arrhythmia. PHYSICAL EXAMINATION: VITAL SIGNS: Blood pressure 117/57, heart rate 88, temperature 98.2, respirations 13. HEENT: Normocephalic. CHEST: Clear. HEART: S1 and S2, regular. EXTREMITIES: Trace edema. LABORATORY DATA: Today's blood sugars are 126 and 103 respectively. Yesterday's troponin was 0.09 and 0.086. EKG today revealed normal sinus rhythm at a rate of 82. CHEST CT ANGIOGRAM: Impression: No gross central pulmonary embolus. However, evaluation for segmental and subsegmental branches markedly limited. For example, questionable filling defect within the segmental branch of the right pulmonary artery, additional questionable filling defect within segmental branches of the right lower lobe and questionable filling defects from the segmental branches of the left lower lobe pulmonary artery. Urine cultures positive for E. Coli. Blood cultures negative after 24 hours. ASSESSMENT: 1. Urinary tract infection. 2. Borderline troponin elevation. 3. Rule out pulmonary infarction. 4. Morbid obesity. 5. Improved hypotension. RECOMMENDATIONS: Continue Crestor at 20 mg once a day. Increase Lovenox therapeutic regimen at 100 mg subcutaneous twice a day. Continue Zosyn at 3.375 g intravenously every 6 hours. Start aspirin 81 mg once a day and obtain a ventilation-perfusion scan. Go Wood MD
--- NOTE | 2018-10-21 17:39 | CARD ---
APPROVED REPORT Date of service: 10/20/2018 EXAM: Two-dimensional and M-mode echocardiogram with Doppler and color Doppler. INDICATION Dizziness and Vertigo Chest Pain RISK FACTORS Hypertension Obesity 2D DIMENSIONS LA [id number] (18-58mL) M-Mode DIMENSIONS Left Atrium (MM)4.39 (2.5-4.0cm)IVSd0.89 (0.7-1.1cm) Aortic Root2.77 (2.2-3.7cm)LVDd5.13 (4.0-5.6cm) Aortic Cusp Exc.1.66 (1.5-2.0cm)PWd1.03 (0.7-1.1cm) FS (%) 42 %LVDs2.99 (2.0-3.8cm) LVEF (%)72 (>50%) Aortic Valve AoV Peak Wlsvsjch836.2cm/Shannen Peak GR.16mmHg Mitral Valve MV E Ibuunrsh30.4cm/sMV A Lveomvhl24.4cm/sE/A ratio1.1 TDI Lateral E' Peak V13.45cm/sMedial E' Peak V7.45cm/sE/Lateral E'6.8 E/Medial E'12.3 Tricuspid Valve TR Peak [id number]/sTR Peak Gr.[id number] LEFT VENTRICLE The left ventricle is normal size. There is normal left ventricular wall thickness. Left ventricle systolic function is normal. The Ejection Fraction is >70%. There is normal LV segmental wall motion. The left ventricular diastolic function is normal. RIGHT VENTRICLE The right ventricle is normal size. There is normal right ventricular wall thickness. The right ventricular systolic function is normal. ATRIA The left atrium is mildly dilated. The right atrium size is normal. The interatrial septum is intact with no evidence for an atrial septal defect. AORTIC VALVE The aortic valve is normal in structure. No aortic regurgitation is present. There is no aortic valvular stenosis. There is no aortic valvular vegetation. MITRAL VALVE The mitral valve is normal in structure. There is no evidence of mitral valve prolapse. There is no mitral valve stenosis. There is no mitral valve regurgitation noted. TRICUSPID VALVE The tricuspid valve is normal in structure. There is mild tricuspid regurgitation. Right ventricular systolic pressure is estimated at 30-40 mmHg. There is mild pulmonary hypertension. PULMONIC VALVE The pulmonic valve is not well visualized. There is no pulmonic valvular regurgitation. GREAT VESSELS The aortic root is normal in size. PERICARDIAL EFFUSION There is no significant pericardial effusion. <Conclusion> Left ventricle systolic function is normal. The Ejection Fraction is >70%. No aortic regurgitation is present. There is no mitral valve regurgitation noted. There is mild tricuspid regurgitation. There is mild pulmonary hypertension. There is no pulmonic valvular regurgitation.
--- NOTE | 2018-10-21 17:49 | CP.PCM.CON ---
History of Present Illness - History of Present Illness History of Present Illness: cultures reviewed pt examined 63 year old female with PMHx of DMII, HTN , and arthritis presents for 3 days of chills, body aches, lethargy, and headache. with associated dysuria Admitted to ICU for possible ACS and found to have elevated troponins and UTI Infectious Diseases consulted for this Cardiology following and will need further eval for this Review of Systems - Review of Systems All systems: reviewed and no additional remarkable complaints except - Constitutional Constitutional: As Per HPI - EENT Eyes: absent: As Per HPI, Blind Spots, Blurred Vision, Change in Vision, Decreased Night Vision, Diplopia, Discharge, Dry Eye, Exophthalmos, Floaters, Irritation, Itchy Eyes, Loss of Peripheral Vision, Pain, Photophobia, Requires Corrective Lenses, Sees Flashes, Spots in Vision, Tunnel Vision, Other Visual Disturbances, Loss of Vision, Other Ears: absent: As Per HPI, Decreased Hearing, Ear Discharge, Ear Pain, Tinnitus, Abnormal Hearing, Disequilibrium, Dizziness, Other Nose/Mouth/Throat: absent: As Per HPI, Epistaxis, Nasal Congestion, Nasal Discharge, Nasal Obstruction, Nasal Trauma, Nose Pain, Post Nasal Drip, Sinus Pain, Sinus Pressure, Bleeding Gums, Change in Voice, Dental Pain, Dry Mouth, Dysphagia, Halitosis, Hoarsness, Lip Swelling, Mouth Lesions, Mouth Pain, Odynophagia, Sore Throat, Throat Swelling, Tongue Swelling, Facial Pain, Neck Pain, Neck Mass, Other - Breasts Breasts: absent: As Per HPI, Change in Shape, Mass, Pain, Nipple Discharge, Nipple Inversion, Skin Changes, Swelling, Other - Cardiovascular Cardiovascular: As Per HPI - Respiratory Respiratory: absent: As Per HPI, Cough, Dyspnea, Hemoptysis, Dyspnea on Exertion, Wheezing, Snoring, Stridor, Pain on Inspiration, Chest Congestion, Excessive Mucous Production, Change in Mucous Color, Pain with Coughing, Other - Gastrointestinal Gastrointestinal: absent: As Per HPI, Abdominal Pain, Belching, Bloating, Change in Bowel Habits, Change in Stool Character, Coffee Ground Emesis, Constipation, Cramping, Diarrhea, Dyspepsia, Dysphagia, Early Satiety, Excessive Flatus, Fecal Incontinence, Heartburn, Hematemesis, Hematochezia, Loose Stools, Melena, Nausea, Odynophagia, Temesmus, Vomiting, Other - Genitourinary Genitourinary: As Per HPI, Urinary Frequency - Reproductive: Female Reproductive:Female: absent: As Per HPI, Amenorrhea, Amenorrhea/ Control, Currently Menstual, Cycle <21 Days, Cycle >35 Days, Cycle Variable, Menses 1-7 Days, Menses >/= 8 Days, Menses Variable, Cycle > 4 Weeks Between, No Menses for 6 Months, Heavy Menses, Light Menses, Normal Menses, Spotting Between Cycles, S/P Hysterectomy, Menopausal, Post Menopausal, Premenarche, Abnormal Vaginal Bleeding, Dysmenorrhea, Dyspareunia, Genital Lesions, Genital Pruritis, Pelvic Pain, Prolapse Symptoms, Sexual Dysfunction, Vaginal Discharge, Vaginal Dryness, Vaginal Odor, Vaginal Pruritis, Other - Menstruation Menstruation: absent: As Per HPI, Amenorrhea, Amenorrhea/ Control, Cur rently Menstual, Cycle <21 Days, Cycle >35 Days, Cycle Variable, Menses 1-7 Days, Menses >/= 8 Days, Menses Variable, Cycle > 4 Weeks Between, No Menses for 6 Months, Heavy Menses, Light Menses, Normal Menses, Spotting Between Cycles, S/P Hysterectomy, Menopausal, Post Menopausal, Premenarche, Abnormal Vaginal Bleeding, Dysmenorrhea, Other - Musculoskeletal Musculoskeletal: absent: As Per HPI, Abnormal Gait, Arthralgias, Atrophy, Back Pain, Deformity, Joint Swelling, Limited Range of Motion, Loss of Height, Muscle Cramps, Muscle Weakness, Myalgias, Neck Pain, Numbness, Radiating Pain into Limb, Stiffness, Tingling, Other - Integumentary Integumentary: absent: As Per HPI, Acne, Alopecia, Bleeding Lesions, Change in Hair, Change in Nails, Change in Pigmentation, Changing Lesions, Dry Skin, Erythema, Furuncle, Hirsutism, Lesions, New Lesions, Non-Healing Lesions, Photosensitivity, Pruritus, Rash, Skin Pain, Skin Ulcer, Sores, Striae, Swelling, Unusual Bruising, Wounds, Jaundice, Other - Neurological Neurological: absent: As Per HPI, Abnormal Gait, Abnormal Hearing, Abnormal Movements, Abnormal Speech, Behavioral Changes, Burning Sensations, Confusion, Convulsions, Disequilibrium, Dizziness, Numbness, Focal Weakness, Frequent Falls, Headaches, Lack of Coordination, Loss of Vision, Memory Loss, Paresthesias, Radicular Pain, Restless Legs, Sensory Deficit, Syncope, Tingling, Tremor, Vertigo, Weakness, Other Visual Disturbances, Other - Psychiatric Psychiatric: absent: As Per HPI, Abnormal Sleep Pattern, Anhedonia, Anxiety, A uditory Hallucinations, Behavioral Changes, Change in Appetite, Change in Libido, Confusion, Depression, Difficulty Concentrating, Hallucinations, Homicidal Ideation, Hopelessness, Irritability, Memory Loss, Mood Swings, Panic Attacks, Paranoia, Suicidal Ideation, Visual Hallucinations, Tactile [place] ucinations, Other - Endocrine Endocrine: absent: As Per HPI, Change in Body Appearance, Change in Libido, Cold Intolorance, Deepening of Voice, Excessive Sweating, Fatigue, Flushing, Heat Intolorance, Increase in Ring/Shoe/Hat Size, Palpitations, Polydipsia, Po lyphagia, Polyuria, Other Past Patient History - Infectious Disease Hx of Infectious Diseases: None - Past Medical History & Family History Past Medical History?: Yes - Past Social History Smoking Status: Never Smoked - CARDIAC Hx Hypertension: Yes - PULMONARY Hx Asthma: Yes - NEUROLOGICAL Hx Neurological Disorder: No - HEENT Hx HEENT Problems: No - RENAL Hx Chronic Kidney Disease: No - ENDOCRINE/METABOLIC Hx Endocrine Disorders: Yes Hx Diabetes Mellitus Type 2: Yes - HEMATOLOGICAL/ONCOLOGICAL Hx Blood Disorders: No - INTEGUMENTARY Hx Dermatological Problems: No - MUSCULOSKELETAL/RHEUMATOLOGICAL Hx Arthritis: Yes - GASTROINTESTINAL Hx Gastrointestinal Disorders: No - GENITOURINARY/GYNECOLOGICAL Other/Comment: "sx on ovary" - PSYCHIATRIC Hx Substance Use: No - SURGICAL HISTORY Hx Surgeries: Yes Hx Orthopedic Surgery: Yes (knee) Hx Tubal Ligation: Yes Other/Comment: rt knee pain. ovarian sx - ANESTHESIA Hx Anesthesia: Yes Hx Anesthesia Reactions: No Meds Allergies/Adverse Reactions: Allergies Allergy/AdvReac Type Severity Reaction Status Date / Time ibuprofen Allergy SWELLING Verified 10/19/18 10:15 naproxen Allergy Verified 10/19/18 13:34 - Medications Medications: Current Medications Acetaminophen (Tylenol 325mg Tab) 650 mg PO Q6H PRN PRN Reason: Fever >100.4 F Last Admin: 10/21/18 00:50 Dose: 650 mg Acetaminophen (Tylenol 325mg Tab) 650 mg PO Q4H PRN PRN Reason: Fever >100.4 F Last Admin: 10/21/18 05:08 Dose: 650 mg Aspirin (Aspirin Chewable) 81 mg PO DAILY [facility] Last Admin: 10/21/18 11:50 Dose: 81 mg Dextrose (Dextrose 50% Inj) 0 ml IV STAT PRN; Protocol PRN Reason: Hypoglycemia Protocol Dextrose (Glutose 15) 0 gm PO ONCE PRN; Protocol PRN Reason: Hypoglycemia Protocol Enoxaparin Sodium (Lovenox) 100 mg SC BID [facility] Last Admin: 10/21/18 10:27 Dose: 100 mg Glucagon (Glucagen Diagnostic Kit) 0 mg IM STAT PRN; Protocol PRN Reason: Hypoglycemia Protocol Piperacillin Sod/Tazobactam Sod (Zosyn 3.375 Gm Iv Premix) 3.375 gm in 50 mls @ 100 mls/hr IVPB Q6H [facility]; Protocol Last Admin: 10/21/18 13:02 Dose: 100 mls/hr Dextrose (Dextrose 5% In Water 1000 Ml) 1,000 mls @ 0 mls/hr IV .Q0M PRN; Protocol PRN Reason: Hypoglycemia Protocol Lactated Ringer's (Lactated Ringer's) 1,000 mls @ 60 mls/hr IV .[id number] [facility] Last Admin: 10/21/18 17:07 Dose: 60 mls/hr Influenza Virus Vaccine (Fluzone Quad [id number]) 60 mcg IM .ONCE ONE Stop: 10/22/18 10:01 Insulin Aspart (Novolog) 0 unit SC ACHS [facility]; Protocol Last Admin: 10/21/18 17:06 Dose: 2 u Ondansetron HCl (Zofran Inj) 4 mg IVP Q6H PRN PRN Reason: Nausea/Vomiting Pneumococcal Polyvalent Vaccine (Pneumovax 23 Vaccine) 0.5 ml IM .ONCE ONE Stop: 10/22/18 10:01 Rosuvastatin Calcium (Crestor) 20 mg PO HS [facility] Last Admin: 10/20/18 22:40 Dose: 20 mg Results - Vital Signs Recent Vital Signs: Last Vital Signs Temp 99.1 F 10/21/18 15:47 Pulse 99 H 10/21/18 17:48 Resp 13 10/21/18 04:00 BP 117/57 L 10/21/18 04:00 Pulse Ox 95 10/21/18 04:00 - Labs Result Diagrams: 10/21/18 12:40 12/02/18 12:40 Labs: Laboratory Results - last 24 hr 10/20/18 10/20/18 10/21/18 18:39 21:19 00:05 WBC RBC Hgb Hct MCV MCH MCHC RDW Plt Count MPV Neut % (Auto) Lymph % (Auto) Bucks % (Auto) Eos % (Auto) Baso % (Auto) Neut # (Auto) Lymph # (Auto) [place] # (Auto) Eos # (Auto) Baso # (Auto) Sodium Potassium Chloride Carbon Dioxide Anion Gap BUN Creatinine Est GFR ( Amer) Est GFR (Non-Af Amer) POC Glucose (mg/dL) 171 H 126 H Random Glucose Calcium Troponin I 0.0860 10/21/18 10/21/18 10/21/18 08:14 11:19 12:40 WBC 6.7 D RBC 3.14 L Hgb 9.8 L Hct 28.9 L MCV 92.0 MCH 31.3 H MCHC 34.0 RDW 14.9 H Plt Count 110 L MPV 10.5 Neut % (Auto) 69.5 Lymph % (Auto) 20.6 Bucks % (Auto) 8.5 Eos % (Auto) 0.6 Baso % (Auto) 0.8 Neut # (Auto) 4.7 Lymph # (Auto) 1.4 Bucks # (Auto) 0.6 Eos # (Auto) 0.0 Baso # (Auto) 0.1 Sodium Potassium Chloride Carbon Dioxide Anion Gap BUN Creatinine Est GFR ( Amer) Est GFR (Non-Af Amer) POC Glucose (mg/dL) 103 160 H Random Glucose Calcium Troponin I 10/21/18 10/21/18 12:40 16:04 WBC RBC Hgb Hct MCV MCH MCHC RDW Plt Count MPV Neut % (Auto) Lymph % (Auto) Bucks % (Auto) Eos % (Auto) Baso % (Auto) Neut # (Auto) Lymph # (Auto) [place]ucks # (Auto) Eos # (Auto) Baso # (Auto) Sodium 137 Potassium 3.7 Chloride 109 H Carbon Dioxide 21 L Anion Gap 11 BUN 6 L Creatinine 0.5 L Est GFR ( Amer) > 60 Est GFR (Non-Af Amer) > 60 POC Glucose (mg/dL) 162 H Random Glucose 123 H Calcium 7.4 L Troponin I 0.0390 Assessment & Plan (1) Hypotension Status: Acute (2) NSTEMI (non-ST elevated myocardial infarction) Status: Acute (3) UTI (urinary tract infection) Status: Acute - Assessment and Plan (Free Text) Assessment: recurrent UTI in a 63 yo female with ACS thus far blood cultures negative would consider imaging when stable as well as eval for urodynamic studies cont IV then PO antibiotics for 14 days
--- NOTE | 2018-10-21 21:43 | CP.PCM.PN ---
Subjective - Subjective Subjective: dictated Objective - Vital Signs/Intake and Output Vital Signs (last 24 hours): Temp Pulse Resp BP Pulse Ox 99.2 F 99 H 13 117/57 L 95 10/21/18 20:00 10/21/18 17:48 10/21/18 04:00 10/21/18 04:00 10/21/18 04:00 Intake and Output: 10/21/18 10/22/18 18:59 06:59 Intake Total 735 Output Total 850 Balance -115 - Medications Medications: Current Medications Acetaminophen (Tylenol 325mg Tab) 650 mg PO Q6H PRN PRN Reason: Fever >100.4 F Last Admin: 10/21/18 19:48 Dose: 650 mg Acetaminophen (Tylenol 325mg Tab) 650 mg PO Q4H PRN PRN Reason: Fever >100.4 F Last Admin: 10/21/18 05:08 Dose: 650 mg Aspirin (Aspirin Chewable) 81 mg PO DAILY [facility] Last Admin: 10/21/18 11:50 Dose: 81 mg Dextrose (Dextrose 50% Inj) 0 ml IV STAT PRN; Protocol PRN Reason: Hypoglycemia Protocol Dextrose (Glutose 15) 0 gm PO ONCE PRN; Protocol PRN Reason: Hypoglycemia Protocol Enoxaparin Sodium (Lovenox) 100 mg SC BID [facility] Last Admin: 10/21/18 18:16 Dose: 100 mg Glucagon (Glucagen Diagnostic Kit) 0 mg IM STAT PRN; Protocol PRN Reason: Hypoglycemia Protocol Dextrose (Dextrose 5% In Water 1000 Ml) 1,000 mls @ 0 mls/hr IV .Q0M PRN; Protocol PRN Reason: Hypoglycemia Protocol Lactated Ringer's (Lactated Ringer's) 1,000 mls @ 60 mls/hr IV .[id number] [facility] Last Admin: 10/21/18 17:07 Dose: 60 mls/hr Cefazolin Sodium 1,000 mg/ (Sodium Chloride) 50 mls @ 100 mls/hr IVPB Q8H [facility]; Protocol Influenza Virus Vaccine (Fluzone Quad [id number]) 60 mcg IM .ONCE ONE Stop: 10/22/18 10:01 Insulin Aspart (Novolog) 0 unit SC ACHS [facility]; Protocol Last Admin: 10/21/18 21:24 Dose: Not Given Ondansetron HCl (Zofran Inj) 4 mg IVP Q6H PRN PRN Reason: Nausea/Vomiting Pneumococcal Polyvalent Vaccine (Pneumovax 23 Vaccine) 0.5 ml IM .ONCE ONE Stop: 10/22/18 10:01 Rosuvastatin Calcium (Crestor) 20 mg PO HS [facility] Last Admin: 10/21/18 21:23 Dose: 20 mg - Labs Labs: 10/21/18 12:40 10/21/18 12:40 PT 12.6 SECONDS (9.7-12.2) H 10/19/18 13:20 INR 1.2 10/19/18 13:20 APTT 37 SECONDS (21-34) H 10/19/18 13:20
[2018-10-22] MEDS: ceFAZolin IV 1 gm in Dextrose 1 GM/50 ML BAG IVPB SCH ×4 (00:10→21:24)
--- NOTE | 2018-10-22 03:49 | PN ---
DATE: 10/21/2018 SUBJECTIVE: Petey is afebrile, decreased fever. No chest pain. No nausea or vomiting. PHYSICAL EXAMINATION: VITAL SIGNS: Blood pressure 112/70, pulse 74, respiratory rate 20, temperature 99.2. LUNGS: Clear. CARDIOVASCULAR SYSTEM: S1 and S2 are regular. ABDOMEN: Soft. ASSESSMENT: 1. Septicemia has been rule out, but urinary tract infection has been ruled in with Escherichia coli with pansensitive except ampicillin and Bactrim. Continue antibiotics. 2. Morbid obesity. 3. Diabetes. 4. Hypertension. PLAN: Continue current medications. Fer Carranza MD
[2018-10-22 06:30] LABS: BASO % 0.5 % (0.0-2.0); EOS # 0.1 K/uL (0.0-0.7); HEMOGLOBIN 11.3 g/dL (11.0-16.0); LYMPH # 1.8 K/uL (1.0-4.3); LYMPH % 23.2 % (20.0-40.0); MEAN CELL VOLUME 91.4 fL (81.0-99.0); MEAN CORPUSCULAR HGB CONC 33.9 g/dL (33.0-37.0); MEAN PLATELET VOLUME 10.7 fL (7.2-11.7); MONO # 0.7 K/uL (0.0-0.8); MONO % 9.1 % (0.0-10.0); NEUT # 5.1 K/uL (1.8-7.0); NEUT % 66.2 % (50.0-75.0); RBC 3.65 Mil/uL (3.80-5.20); RED CELL DISTRIBUTION WIDTH 14.6 % (11.5-14.5); WHITE BLOOD COUNT 7.7 K/uL (4.8-10.8)
[2018-10-22 06:44] LABS: BLOOD UREA NITROGEN 6 mg/dL (7-17); CALCIUM 8.7 mg/dl (8.6-10.4); GFR NON-AFRICAN AMERICAN > 60
[2018-10-22] MEDS: Lactated Ringer's 1,000 ML IV SCH ×2 (07:42→13:45)
[2018-10-22] MEDS: (Novolog) Insulin Aspart, Recombinant 100 u/ml 10 ml vial SC SCH ×4 (07:42→21:27)
--- NOTE | 2018-10-22 08:45 | NM ---
Date of service: 10/22/2018 COMPARISON: Portable chest x-ray 10/22/2018 at 7:30 a.m. TECHNIQUE: 13.8 mCi mCi technetium 99-m Xe-133 Gas. 4.2 mCI technetium 99-m MAA administered intravenously. FINDINGS: VENTILATION COMPONENT: Normal. PERFUSION COMPONENT: Solitary subsegmental perfusion defect, mismatched, posterior lateral right lung. No other perfusion defect identified. Low probability for pulmonary embolism. IMPRESSION: Lowprobability ventilation perfusion scan for pulmonary embolism.
[2018-10-22] MEDS: Enoxaparin 100 mg Syringe SC SCH (09:20)
--- NOTE | 2018-10-22 09:51 | CARD ---
APPROVED REPORT Date of service: 10/21/2018 EKG Measurement Heart [id number] <Conclusion> Normal sinus rhythm Normal ECG
[2018-10-22] MEDS ORDERED: Influenza Vaccine 60 MCG/0.5 ML SYR (3 yr & up) IM ONE (10:00)
[2018-10-22] MEDS ORDERED: Pneumococcal 23-Valent Vaccine IM ONE (10:00)
--- NOTE | 2018-10-22 10:45 | RAD ---
HISTORY: vq scan COMPARISON: Chest x-ray performed 10/19/18, CTA chest performed 10/20/18 TECHNIQUE: Chest, one view. FINDINGS: Examination limited by habitus. LUNGS: Mild pulmonary venous congestion. No focal consolidation.No significant pleural effusion identified. No definite pneumothorax . Please note that chest x-ray has limited sensitivity for the detection of pulmonary masses. CARDIOVASCULAR: Heart size appears top normal. No significant atherosclerotic calcification present. OSSEOUS STRUCTURES: No acute osseous abnormality identified. VISUALIZED UPPER ABDOMEN: Unremarkable. OTHER FINDINGS: None. IMPRESSION: Mild pulmonary venous congestion.
--- NOTE | 2018-10-22 11:01 | CP.PCM.PN ---
Subjective - Date & Time of Evaluation Date of Evaluation: 10/22/18 Time of Evaluation: 07:00 - Subjective Subjective: afeb in ICU denies chest pain awake alert Objective - Vital Signs/Intake and Output Vital Signs (last 24 hours): Temp Pulse Resp BP Pulse Ox 98.2 F 85 20 148/64 100 10/22/18 08:00 10/22/18 10:00 10/22/18 04:00 10/22/18 04:00 10/22/18 08:00 Intake and Output: 10/22/18 10/22/18 06:59 18:59 Intake Total 1160 420 Balance 1160 420 - Medications Medications: Current Medications Acetaminophen (Tylenol 325mg Tab) 650 mg PO Q6H PRN PRN Reason: Fever >100.4 F Last Admin: 10/22/18 07:56 Dose: 650 mg Acetaminophen (Tylenol 325mg Tab) 650 mg PO Q4H PRN PRN Reason: Fever >100.4 F Last Admin: 10/21/18 05:08 Dose: 650 mg Aspirin (Aspirin Chewable) 81 mg PO DAILY [facility] Last Admin: 10/22/18 09:19 Dose: 81 mg Dextrose (Dextrose 50% Inj) 0 ml IV STAT PRN; Protocol PRN Reason: Hypoglycemia Protocol Dextrose (Glutose 15) 0 gm PO ONCE PRN; Protocol PRN Reason: Hypoglycemia Protocol Enoxaparin Sodium (Lovenox) 100 mg SC BID [facility] Last Admin: 10/22/18 09:20 Dose: 100 mg Glucagon (Glucagen Diagnostic Kit) 0 mg IM STAT PRN; Protocol PRN Reason: Hypoglycemia Protocol Dextrose (Dextrose 5% In Water 1000 Ml) 1,000 mls @ 0 mls/hr IV .Q0M PRN; Protocol PRN Reason: Hypoglycemia Protocol Lactated Ringer's (Lactated Ringer's) 1,000 mls @ 60 mls/hr IV .[id number] [facility] Last Admin: 10/22/18 07:42 Dose: Not Given Cefazolin Sodium/Dextrose (Ancef Iv 1 Gm Duplex) 1 gm in 50 mls @ 100 mls/hr IVPB Q8H [facility]; Protocol Last Admin: 10/22/18 05:50 Dose: 100 mls/hr Insulin Aspart (Novolog) 0 unit SC ACHS [facility]; Protocol Last Admin: 10/22/18 07:42 Dose: Not Given Ondansetron HCl (Zofran Inj) 4 mg IVP Q6H PRN PRN Reason: Nausea/Vomiting Rosuvastatin Calcium (Crestor) 20 mg PO HS [facility] Last Admin: 10/21/18 21:23 Dose: 20 mg - Labs Labs: 10/22/18 06:22 10/22/18 06:16 PT 12.6 SECONDS (9.7-12.2) H 10/19/18 13:20 INR 1.2 10/19/18 13:20 APTT 37 SECONDS (21-34) H 10/19/18 13:20 - Constitutional Appears: Non-toxic, Chronically Ill - Head Exam Head Exam: NORMOCEPHALIC - Eye Exam Eye Exam: absent: Scleral icterus - ENT Exam ENT Exam: Mucous Membranes Dry - Neck Exam Neck Exam: absent: Lymphadenopathy - Respiratory Exam Respiratory Exam: Decreased Breath Sounds - Cardiovascular Exam Cardiovascular Exam: REGULAR RHYTHM - GI/Abdominal Exam GI & Abdominal Exam: Distended, Soft - Rectal Exam Rectal Exam: Deferred - Exam Exam: NORMAL INSPECTION - Extremities Exam Extremities Exam: absent: Pedal Edema - Back Exam Back Exam: absent: CVA tenderness (L), CVA tenderness (R) Assessment and Plan (1) Hypotension Status: Acute (2) NSTEMI (non-ST elevated myocardial infarction) Status: Acute (3) UTI (urinary tract infection) Status: Acute - Assessment and Plan (Free Text) Assessment: cont iv antibiotics await cardiology follow up
[2018-10-22] MEDS ORDERED: Potassium Chloride 20 mEq/15 ml LIQ UD PO ONE ×2 (12:00→16:00)
--- NOTE | 2018-10-22 16:39 | PN ---
DATE: 10/22/2018 SUBJECTIVE: The patient denies any chest pain or shortness of breath. No reported arrhythmia. She is still experiencing mild dysuria. PHYSICAL EXAMINATION: VITAL SIGNS: Blood pressure 148/64, heart rate 98, temperature 98.8, respirations 20. HEENT: Normocephalic. CHEST: Clear. HEART: S1 and S2 regular. EXTREMITIES: No pitting edema. LABORATORY DATA: Today's hemoglobin and hematocrit 11.3 and 33.3. White count and platelet count are within normal limit. Today's SMA-7: Sodium 141, potassium 3.3, chloride 104, CO2 of 29, glucose 145, BUN 6, and creatinine 0.6. Ventilation/perfusion scan has low probability for pulmonary embolism. Venous Doppler of The lower extremity, preliminary reports no DVT. ASSESSMENT: 1. Escherichia coli urinary tract infection. 2. Borderline troponin elevation; however, with normal electrocardiogram and unremarkable echocardiogram study for segmental hypokinesis and no chest pain. 3. Hypokalemia. RECOMMENDATIONS: Continue current IV Ancef at 1 g every 8 hours, aspirin 81 mg once a day, Lovenox will be reduced to 40 mg daily and KCl 40 mEq solution was ordered today. Continue Crestor 20 mg once a day. Case was discussed with the patient's family at the bedside. The patient will be considered for future cardiac catheterization once the UTI is resolved. Go Wood MD
--- NOTE | 2018-10-22 21:51 | CP.PCM.PN ---
Subjective - Subjective Subjective: dictated Objective - Vital Signs/Intake and Output Vital Signs (last 24 hours): Temp Pulse Resp BP Pulse Ox 98.2 F 79 20 148/64 99 10/22/18 20:00 10/22/18 18:00 10/22/18 04:00 10/22/18 04:00 10/22/18 20:00 Intake and Output: 10/22/18 10/23/18 18:59 06:59 Intake Total 1820 Balance 1820 - Medications Medications: Current Medications Acetaminophen (Tylenol 325mg Tab) 650 mg PO Q6H PRN PRN Reason: Fever >100.4 F Last Admin: 10/22/18 07:56 Dose: 650 mg Aspirin (Aspirin Chewable) 81 mg PO DAILY [facility] Last Admin: 10/22/18 09:19 Dose: 81 mg Dextrose (Dextrose 50% Inj) 0 ml IV STAT PRN; Protocol PRN Reason: Hypoglycemia Protocol Dextrose (Glutose 15) 0 gm PO ONCE PRN; Protocol PRN Reason: Hypoglycemia Protocol Enoxaparin Sodium (Lovenox) 40 mg SC DAILY [facility] Glucagon (Glucagen Diagnostic Kit) 0 mg IM STAT PRN; Protocol PRN Reason: Hypoglycemia Protocol Lactated Ringer's (Lactated Ringer's) 1,000 mls @ 60 mls/hr IV .[id number] [facility] Last Admin: 10/22/18 13:45 Dose: 60 mls/hr Cefazolin Sodium/Dextrose (Ancef Iv 1 Gm Duplex) 1 gm in 50 mls @ 100 mls/hr IVPB Q8H [facility]; Protocol Last Admin: 10/22/18 21:24 Dose: 100 mls/hr Insulin Aspart (Novolog) 0 unit SC ACHS [facility]; Protocol Last Admin: 10/22/18 21:27 Dose: Not Given Ondansetron HCl (Zofran Inj) 4 mg IVP Q6H PRN PRN Reason: Nausea/Vomiting Rosuvastatin Calcium (Crestor) 20 mg PO HS [facility] Last Admin: 10/22/18 21:24 Dose: 20 mg - Labs Labs: 10/22/18 06:22 10/22/18 06:16 PT 12.6 SECONDS (9.7-12.2) H 10/19/18 13:20 INR 1.2 10/19/18 13:20 APTT 37 SECONDS (21-34) H 10/19/18 13:20
--- NOTE | 2018-10-23 03:38 | PN ---
DATE: 10/22/2018 SUBJECTIVE: The patient, Petey, is afebrile. No dysuria. Feels much better. Hemodynamically stable. Cardiac stable. PHYSICAL EXAMINATION: VITAL SIGNS: Blood pressure 124/70, pulse 88, respiratory rate 20, and temperature 98.9. LUNGS: Clear. CARDIOVASCULAR SYSTEM: S1 and S2 are regular. ABDOMEN: Soft. ASSESSMENT: 1. Urinary tract infection, rule out septicemia. The patient is Escherichia coli positive, on cefazolin. 2. Hypertension. 3. Morbid obesity. 4. Uncontrolled diabetes. 5. Acute myocardial infarction. PLAN: Continue current medications. Monitor the patient. Fer Carranza MD
[2018-10-23] MEDS: ceFAZolin IV 1 gm in Dextrose 1 GM/50 ML BAG IVPB SCH ×3 (05:44→22:12)
[2018-10-23] MEDS: Lactated Ringer's 1,000 ML IV SCH ×2 (05:45→12:39)
[2018-10-23 06:14] LABS: BASO % 0.4 % (0.0-2.0); EOS # 0.3 K/uL (0.0-0.7); EOS % 3.7 % (0.0-4.0); HEMOGLOBIN 12.3 g/dL (11.0-16.0); LYMPH # 2.6 K/uL (1.0-4.3); LYMPH % 31.9 % (20.0-40.0); MEAN CELL VOLUME 90.9 fL (81.0-99.0); MEAN CORPUSCULAR HEMOGLOBIN 31.1 pg (27.0-31.0); MEAN CORPUSCULAR HGB CONC 34.2 g/dL (33.0-37.0); MONO # 0.9 K/uL (0.0-0.8); MONO % 11.1 % (0.0-10.0); NEUT # 4.3 K/uL (1.8-7.0); NEUT % 52.9 % (50.0-75.0); RBC 3.97 Mil/uL (3.80-5.20); RED CELL DISTRIBUTION WIDTH 14.5 % (11.5-14.5)
[2018-10-23 06:33] LABS: BLOOD UREA NITROGEN 6 mg/dL (7-17); CALCIUM 9.2 mg/dl (8.6-10.4); GFR NON-AFRICAN AMERICAN > 60
[2018-10-23] MEDS: (Novolog) Insulin Aspart, Recombinant 100 u/ml 10 ml vial SC SCH ×4 (09:05→22:09)
[2018-10-23] MEDS: Enoxaparin 40 mg Syringe SC SCH (09:32)
--- NOTE | 2018-10-23 13:15 | VASCLAB ---
Date of service: 10/20/2018 PROCEDURE: Lower Extremity Venous Duplex Exam. HISTORY: DVT PRIORS: None. TECHNIQUE: Bilateral common femoral, femoral, popliteal and posterior tibial, peroneal and great saphenous veins were evaluated. Flow was assessed with color Doppler, compressibility, assessment of phasic flow and augmentation response. Report prepared by DEBRA Perdomo, RVT FINDINGS: RIGHT: 1. Common Femoral Vein: 1.1. Compressibility - Fully compressible: Thrombus - None : Flow - Phasic: Augmentation -Normal: Reflux - None. 2. Femoral Vein: 2.1. Compressibility - Fully compressible: Thrombus - None : Flow - Phasic: Augmentation -Normal: Reflux - None. 3. Popliteal Vein: 3.1. Compressibility - Fully compressible: Thrombus - None : Flow - Phasic: Augmentation -Normal: Reflux - None. 4. Posterior Tibial Vein: 4.1. Compressibility - Fully compressible: Thrombus - None: Flow - Phasic: Augmentation -Normal: Reflux - None. 5. Peroneal Vein: 5.1. Compressibility - Fully compressible: Thrombus - None: Flow - Phasic: Augmentation -Normal: Reflux - None. 6. Great Saphenous Vein: 6.1. Compressibility - Fully compressible: Thrombus - None: Flow - Phasic: Augmentation - Normal: Reflux - None. LEFT: 1. Common Femoral Vein: 1.1. Compressibility - Fully compressible: Thrombus - None: Flow - Phasic: Augmentation -Normal: Reflux - None. 2. Femoral Vein: 2.1. Compressibility - Fully compressible: Thrombus - None: Flow - Phasic: Augmentation -Normal: Reflux - None. 3. Popliteal Vein: 3.1. Compressibility - Fully compressible: Thrombus - None : Flow - Phasic: Augmentation -Normal: Reflux - None. 4. Posterior Tibial Vein: 4.1. Compressibility - Fully compressible: Thrombus - None: Flow - Phasic: Augmentation -Normal: Reflux - None. 5. Peroneal Vein: 5.1. Compressibility - Fully compressible: Thrombus - None: Flow - Phasic: Augmentation -Normal: Reflux - None. 6. Great Saphenous Vein: 6.1. Compressibility - Fully compressible: Thrombus - None: Flow - Phasic: Augmentation - Normal: Reflux - None. OTHER FINDINGS: Right: None significant. Left: None significant. IMPRESSION: Right: No evidence of deep or superficial vein thrombosis of the right lower extremity. Normal valve function noted of the right side. Left: No evidence of deep or superficial vein thrombosis of the left lower extremity. Normal valve function noted of the left side.
--- NOTE | 2018-10-23 15:33 | PN ---
DATE: 10/23/2018 SUBJECTIVE: The patient denied any chest pain. No reported arrhythmia. She is hemodynamically stable, in sinus rhythm. PHYSICAL EXAMINATION: VITAL SIGNS: Blood pressure 134/65, heart rate 71, temperature 97.4, respirations 16. HEENT: Normocephalic. CHEST: Clear. HEART Sounds are regular. EXTREMITIES: No edema and no calf tenderness. LABORATORY DATA: Hematocrit 12.3 and 36.1. White count and platelet count are within normal limit. Today's SMA-7 is within normal limits except for glucose 126, BUN and creatinine of 6 and 0.6. IMPRESSION: 1. Escherichia coli urinary tract infection. Blood culture is negative after 3 days. 2. Borderline troponin elevation upon presentation. 3. Morbid obesity. 4. Osteoarthritis. RECOMMENDATIONS: In view of overall clinical condition, it is very unlikely this patient has [id number] myocardial infarction upon presentation. Continue current IV Ancef at 1 g every 8 hours, Crestor 20 mg once a day, aspirin 81 mg once daily, Lovenox 14 g subcutaneous once a day. The patient can undergo Myoview stress test as an outpatient after resolution of urinary tract infection. Go Wood MD
[2018-10-23 16:12] VITALS: RESP 18
--- NOTE | 2018-10-23 19:06 | CARD ---
APPROVED REPORT Date of service: 10/20/2018 EKG Measurement Heart [id number] <Conclusion> Normal sinus rhythm Normal ECG
--- NOTE | 2018-10-24 00:32 | CP.PCM.PN ---
Subjective - Subjective Subjective: dictated Objective - Vital Signs/Intake and Output Vital Signs (last 24 hours): Temp Pulse Resp BP Pulse Ox 98.1 F 82 18 152/75 H 99 10/23/18 20:00 10/23/18 18:00 10/23/18 16:00 10/23/18 16:00 10/23/18 20:00 Intake and Output: 10/23/18 10/24/18 18:59 06:59 Intake Total 1640 550 Output Total 1550 Balance 90 550 - Medications Medications: Current Medications Acetaminophen (Tylenol 325mg Tab) 650 mg PO Q6H PRN PRN Reason: Fever >100.4 F Last Admin: 10/22/18 07:56 Dose: 650 mg Aspirin (Aspirin Chewable) 81 mg PO DAILY [facility] Last Admin: 10/23/18 09:32 Dose: 81 mg Dextrose (Dextrose 50% Inj) 0 ml IV STAT PRN; Protocol PRN Reason: Hypoglycemia Protocol Dextrose (Glutose 15) 0 gm PO ONCE PRN; Protocol PRN Reason: Hypoglycemia Protocol Enoxaparin Sodium (Lovenox) 40 mg SC DAILY [facility] Last Admin: 10/23/18 09:32 Dose: 40 mg Glucagon (Glucagen Diagnostic Kit) 0 mg IM STAT PRN; Protocol PRN Reason: Hypoglycemia Protocol Lactated Ringer's (Lactated Ringer's) 1,000 mls @ 60 mls/hr IV .[id number] [facility] Last Admin: 10/23/18 12:39 Dose: Not Given Cefazolin Sodium/Dextrose (Ancef Iv 1 Gm Duplex) 1 gm in 50 mls @ 100 mls/hr IVPB Q8H [facility]; Protocol Last Admin: 10/23/18 22:12 Dose: 100 mls/hr Insulin Aspart (Novolog) 0 unit SC [facility]; Protocol Last Admin: 10/23/18 22:09 Dose: Not Given Ondansetron HCl (Zofran Inj) 4 mg IVP Q6H PRN PRN Reason: Nausea/Vomiting Rosuvastatin Calcium (Crestor) 20 mg PO HS [facility] Last Admin: 10/23/18 22:12 Dose: 20 mg - Labs Labs: 10/23/18 06:10 10/23/18 06:10 PT 12.6 SECONDS (9.7-12.2) H 10/19/18 13:20 INR 1.2 10/19/18 13:20 APTT 37 SECONDS (21-34) H 10/19/18 13:20
[2018-10-24] MEDS: Lactated Ringer's 1,000 ML IV SCH ×2 (01:51→05:32)
[2018-10-24 04:54] VITALS: O2SAT 98
[2018-10-24] MEDS: ceFAZolin IV 1 gm in Dextrose 1 GM/50 ML BAG IVPB SCH (05:31)
[2018-10-24] MEDS: (Novolog) Insulin Aspart, Recombinant 100 u/ml 10 ml vial SC SCH ×2 (08:30→12:30)
[2018-10-24] MEDS: Enoxaparin 40 mg Syringe SC SCH (09:29)
--- NOTE | 2018-10-24 10:59 | PN ---
DATE: 10/24/2018 SUBJECTIVE: The patient is awake. He is sitting in the chair. He is confused with left sided weakness. PHYSICAL EXAMINATION: VITAL SIGNS: Blood pressure 139/64, pulse 82, respiratory rate 18, temperature 97.8. CARDIOPULMONARY: S1, S2 regular. LUNGS: Clear. ABDOMEN: Soft. CENTRAL NERVOUS SYSTEM: Patient Is aphasic with left sided weakness. ASSESSMENT: 1. Cerebrovascular accident with hemorrhagic conversion. 2. Urinary tract infection and Escherichia coli positive. The patient is on Keflex. 3. Hypertension. PLAN: Continue current medication. Monitor patient. Fer Carranza MD
--- NOTE | 2018-10-24 11:35 | PN ---
DATE: 10/24/2018 SUBJECTIVE: Kristin Angelo is afebrile. Feeling better. PHYSICAL EXAMINATION: VITAL SIGNS: Blood pressure 139/64, pulse 82, respiratory rate 18, temperature 97.8. LUNGS: Clear. CARDIOVASCULAR: S1, S2, regular. ABDOMEN: Soft. ASSESSMENT: 1. Urinary tract infection. 2. Hypertension. 3. Diabetes. PLAN: Continue current medication. Monitor the patient. Fer Carranza MD
[2018-10-24 14:24] VITALS: TEMP 98
--- NOTE | 2018-10-24 15:55 | CP.PCM.PN ---
Subjective - Date & Time of Evaluation Date of Evaluation: 10/24/18 Time of Evaluation: 14:00 - Subjective Subjective: Patient seen today, denies any chest pain, sob, dizziness, palpitations abdominal pain, dysuria c/o itching started today fading diffuse rashes noted on abdominal area , back and under breast area vss and labs reviewed - stable wbc - WNL a febrile Objective - Vital Signs/Intake and Output Vital Signs (last 24 hours): Temp Pulse Resp BP Pulse Ox 98.0 F 80 18 139/64 98 10/24/18 12:00 10/24/18 07:40 10/24/18 00:00 10/24/18 00:00 10/24/18 04:00 Intake and Output: 10/24/18 10/24/18 06:59 18:59 Intake Total 970 Output Total 1400 Balance -430 - Medications Medications: Current Medications Acetaminophen (Tylenol 325mg Tab) 650 mg PO Q6H PRN PRN Reason: Fever >100.4 F Last Admin: 10/22/18 07:56 Dose: 650 mg Dextrose (Dextrose 50% Inj) 0 ml IV STAT PRN; Protocol PRN Reason: Hypoglycemia Protocol Dextrose (Glutose 15) 0 gm PO ONCE PRN; Protocol PRN Reason: Hypoglycemia Protocol Diphenhydramine HCl (Benadryl) 25 mg PO Q6 PRN PRN Reason: Rash Last Admin: 10/24/18 14:21 Dose: 25 mg Enoxaparin Sodium (Lovenox) 40 mg SC DAILY [facility] Last Admin: 10/24/18 09:29 Dose: 40 mg Glucagon (Glucagen Diagnostic Kit) 0 mg IM STAT PRN; Protocol PRN Reason: Hypoglycemia Protocol Hydrocortisone (Cortizone 0.5% Cream) 0 applic TOP BID [facility] Insulin Aspart (Novolog) 0 unit SC ACHS [facility]; Protocol Last Admin: 10/24/18 12:30 Dose: 3 u Ondansetron HCl (Zofran Inj) 4 mg IVP Q6H PRN PRN Reason: Nausea/Vomiting Rosuvastatin Calcium (Crestor) 20 mg PO HS [facility] Last Admin: 10/23/18 22:12 Dose: 20 mg - Labs Labs: 10/23/18 06:10 10/23/18 06:10 PT 12.6 SECONDS (9.7-12.2) H 10/19/18 13:20 INR 1.2 10/19/18 13:20 APTT 37 SECONDS (21-34) H 10/19/18 13:20 Assessment and Plan - Assessment and Plan (Free Text) Assessment: A/P 63yo F. PMHx HTN, DM, arthritis, pyelonephritis and recurrent UTI admitted with nausea and vomiting, and body aches. troponin x3 - MILDLY ELEVATED WITHOUT ekg CHANGES AN DREPEAT TROPONIN - NEGATIVE WBC - WNL URINE CULTURE = FOR E. COLI AND STARTED ON CEFEPINE patient develops generalized rash - aspirin allergy? ( patient allergic to iboprophin an dnaproxen , no PCN or cephalosporins reported ) asa discontinued D/w Dr. Wood cleared for discharge from cardiology standpoint an df/u with Cardiology pout patient for stress test D/w , cleared fro discharge home today and f/u with PMD Dr. Yuan in 1 week and continue cipro for UTI Discharge plan discussed with patient and granddaughter at bedside, who understands and agrees with plan patient instructed to returns to ED if symptoms returns or worsening symptoms
[2018-10-24 16:22] VITALS: BP 138/72; PULSE 82
--- NOTE | 2018-10-24 21:46 | CP.PCM.DIS ---
Provider - Provider Date of Admission: 10/19/18 15:46 Attending physician: Fer Carranza MD Consults: 10/19/18 15:40 Cardiology Consult Stat Comment: elev trop Consulting Provider: Go Wood Consulting Physician: Go Wood Reason for Consult: elev trop 10/20/18 09:41 Infectious Disease Consult Routine Comment: Consulting Provider: Praneeth Wilburn Consulting Physician: Praneeth Wilburn Reason for Consult: Bands 16 Hospital Course - Lab Results Lab Results: Micro Results 10/19/18 13:20 Blood-Venous Blood Culture - Final NO GROWTH AFTER 5 DAYS 10/19/18 13:20 Blood-Venous Gram Stain - Final TEST NOT PERFORMED 10/19/18 12:57 Blood-Venous Blood Culture - Final NO GROWTH AFTER 5 DAYS 10/19/18 12:57 Blood-Venous Gram Stain - Final TEST NOT PERFORMED 10/19/18 13:20 Urine Urine Culture - Final Escherichia Coli 10/19/18 18:21 Naris MRSA Culture (Admit) - Final MRSA NOT DETECTED Most Recent Lab Values WBC 8.0 K/uL (4.8-10.8) 10/23/18 06:10 RBC 3.97 Mil/uL (3.80-5.20) 10/23/18 06:10 Hgb 12.3 g/dL (11.0-16.0) 10/23/18 06:10 Hct 36.1 % (34.0-47.0) 10/23/18 06:10 MCV 90.9 fL (81.0-99.0) 10/23/18 06:10 MCH 31.1 pg (27.0-31.0) H 10/23/18 06:10 MCHC 34.2 g/dL (33.0-37.0) 10/23/18 06:10 RDW 14.5 % (11.5-14.5) 10/23/18 06:10 Plt Count 168 K/uL (130-400) 10/23/18 06:10 MPV 10.0 fL (7.2-11.7) 10/23/18 06:10 Neut % (Auto) 52.9 % (50.0-75.0) 10/23/18 06:10 Lymph % (Auto) 31.9 % (20.0-40.0) 10/23/18 06:10 [place] % (Auto) 11.1 % (0.0-10.0) H 10/23/18 06:10 Eos % (Auto) 3.7 % (0.0-4.0) 10/23/18 06:10 Baso % (Auto) 0.4 % (0.0-2.0) 10/23/18 06:10 Neut # (Auto) 4.3 K/uL (1.8-7.0) 10/23/18 06:10 Lymph # (Auto) 2.6 K/uL (1.0-4.3) 10/23/18 06:10 [place] # (Auto) 0.9 K/uL (0.0-0.8) H 10/23/18 06:10 Eos # (Auto) 0.3 K/uL (0.0-0.7) 10/23/18 06:10 Baso # (Auto) 0.0 K/uL (0.0-0.2) 10/23/18 06:10 Neutrophils % (Manual) 75 % (50-75) 10/20/18 08:18 Band Neutrophils % 16 % (0-2) H* 10/20/18 08:18 Lymphocytes % (Manual) 5 % (20-40) L 10/20/18 08:18 Monocytes % (Manual) 4 % (0-10) 10/20/18 08:18 Toxic Granulation Present 10/20/18 08:18 Platelet Estimate Slightly decreased (NORMAL) L 10/20/18 08:18 Large Platelets Present 10/19/18 12:07 Polychromasia Slight 10/20/18 08:18 Hypochromasia (manual) Slight 10/20/18 08:18 Anisocytosis (manual) Slight 10/20/18 08:18 PT 12.6 SECONDS (9.7-12.2) H 10/19/18 13:20 INR 1.2 10/19/18 13:20 APTT 37 SECONDS (21-34) H 10/19/18 13:20 D-Dimer, Quantitative 551 ng/mlDDU (0-243) H 10/19/18 15:00 pO2 34 mm/Hg (30-55) 10/19/18 14:47 VBG pH 7.33 (7.32-7.43) 10/19/18 14:47 VBG pCO2 29 mmHg (40-60) L 10/19/18 14:47 VBG HCO3 16.7 mmol/L 10/19/18 14:47 VBG Total CO2 16.2 mmol/L (22-28) L 10/19/18 14:47 VBG O2 Sat (Calc) 73.1 % (40-65) H 10/19/18 14:47 VBG Base Excess -9.2 mmol/L (0.0-2.0) L 10/19/18 14:47 VBG Potassium 1.9 mmol/L (3.6-5.2) L* 10/19/18 14:47 Sodium 152.0 mmol/l (132-148) H 10/19/18 14:47 Chloride 119.0 mmol/L (98-107) H 10/19/18 14:47 Glucose 109 mg/dl (65-105) H 10/19/18 14:47 Lactate 0.7 mmol/L (0.7-2.1) 10/19/18 14:47 Crit Value Called To brian Reed 10/19/18 14:47 Crit Value Called By Chiquita to rrt 10/19/18 14:47 Crit Value Read Back Y 10/19/18 14:47 Blood Gas Notified Time 1453 10/19/18 14:47 Sodium 140 mmol/L (132-148) 10/23/18 06:10 Potassium 3.8 mmol/L (3.6-5.2) 10/23/18 06:10 Chloride 103 mmol/L (98-107) 10/23/18 06:10 Carbon Dioxide 29 mmol/L (22-30) 10/23/18 06:10 Anion Gap 12 (10-20) 10/23/18 06:10 BUN 6 mg/dL (7-17) L 10/23/18 06:10 Creatinine 0.6 mg/dL (0.7-1.2) L 10/23/18 06:10 Est GFR ( Amer) > 60 10/23/18 06:10 Est GFR (Non-Af Amer) > 60 10/23/18 06:10 POC Glucose (mg/dL) 215 mg/dL (65-110) H 10/24/18 11:08 Random Glucose 126 mg/dL (65-105) H 10/23/18 06:10 Lactic Acid 2.9 mmol/L (0.7-2.1) H 10/19/18 18:51 Calcium 9.2 mg/dl (8.6-10.4) 10/23/18 06:10 Phosphorus 3.4 mg/dL (2.5-4.5) 10/20/18 05:41 Magnesium 1.9 mg/dL (1.6-2.3) 10/20/18 05:41 Total Bilirubin 1.0 mg/dL (0.2-1.3) 10/20/18 05:41 AST 34 U/L (14-36) 10/20/18 05:41 ALT 28 U/L (9-52) 10/20/18 05:41 Alkaline Phosphatase 107 U/L (38-126) 10/20/18 05:41 Total Creatine Kinase 65 U/L (30-135) 10/19/18 18:51 CK-MB (Mass) 1.07 ng/mL (0.0-3.38) 10/19/18 18:51 Troponin I 0.0390 ng/mL (0.00-0.120) 10/21/18 12:40 NT-Pro-B Natriuret Pep 1490 pg/mL (0-900) H 10/19/18 12:07 Total Protein 6.2 g/dL (6.3-8.3) L 10/20/18 05:41 Albumin 3.4 g/dL (3.5-5.0) L 10/20/18 05:41 Globulin 2.9 gm/dL (2.2-3.9) 10/20/18 05:41 Albumin/Globulin Ratio 1.2 (1.0-2.1) 10/20/18 05:41 Venous Blood Potassium 1.9 mmol/L (3.6-5.2) L* 10/19/18 14:47 Urine Color Yellow (YELLOW) 10/19/18 12:13 Urine Clarity Hazy (Clear) 10/19/18 12:13 Urine pH 6.0 (5.0-8.0) 10/19/18 12:13 Ur Specific [place] 1.005 (1.003-1.030) 10/19/18 12:13 Urine Protein Negative mg/dL (NEGATIVE) 10/19/18 12:13 Urine Glucose (UA) Normal mg/dL (Normal) 10/19/18 12:13 Urine Ketones Negative mg/dL (NEGATIVE) 10/19/18 12:13 Urine Blood 1+ (NEGATIVE) H 10/19/18 12:13 Urine Nitrate Positive (NEGATIVE) H 10/19/18 12:13 Urine Bilirubin Negative (NEGATIVE) 10/19/18 12:13 Urine Urobilinogen Normal mg/dL (0.2-1.0) 10/19/18 12:13 Ur Leukocyte Esterase 3+ Ana M/uL (Negative) H 10/19/18 12:13 Urine WBC (Auto) 134 /hpf (0-5) H 10/19/18 12:13 Urine RBC (Auto) 13 /hpf (0-3) H 10/19/18 12:13 Ur Squamous Epith Cells 2 /hpf (0-5) 10/19/18 12:13 Urine Bacteria Occ (<OCC) H 10/19/18 12:13 Discharge Exam - Head Exam Head Exam: NORMOCEPHALIC Discharge Plan - Discharge Medications Prescriptions: DiphenhydrAMINE [Benadryl] 25 mg PO Q6 PRN #14 cap PRN Reason: Itching / Pruritus Ciprofloxacin [Cipro] 250 mg PO BID #10 tab Rosuvastatin Calcium [Crestor] 20 mg PO HS #30 tab - Follow Up Plan Condition: GUARDED Disposition: HOME/ ROUTINE Instructions: Ciprofloxacin (Systemic), Heart Healthy Diet, Heart Disease in Women (DC), Rosuvastatin, Urinary Tract Infection in Women (DC) Additional Instructions: Please f/u with Dr. Yuan office in 1 week - f/u visit and labs and u/a Please f/u with single stroke preformer ( referred by your PMD) in 2 week -NEED STRESS TEST continue antibiotics for 5 more days Please continue medication as per med. rec.
--- NOTE | 2018-10-24 22:15 | PN ---
DATE: 10/24/2018 SUBJECTIVE: The patient developed pruritic rash over her tongue anteriorly and posteriorly. The patient denies ever taking aspirin in the past and does not know she has allergy to aspirin or not. She has allergy to ibuprofen. The patient denies any chest pain or shortness of breath. PHYSICAL EXAMINATION: VITAL SIGNS: Blood pressure 132/72, heart rate 82, temperature 98, and respirations 18. HEENT: Normocephalic. CHEST: Clear. HEART: S1 and S2 are regular. EXTREMITIES: No edema. LABORATORY DATA: Today's blood sugars are 185 and 215 respectively. Blood culture is negative after five days. ASSESSMENT: 1. Escherichia coli urinary tract infection. 2. Morbid obesity. 3. Uncontrolled diabetes mellitus. 4. Pruritic rash, rule out aspirin allergy. RECOMMENDATIONS: Case was discussed with the patient and her daughters at the bedside as well as the nurse practitioner. Discontinue any aspirin from now. Continue rest of the medications. The patient can be discharged from the cardiac point to be followed primary physician and undergo an outpatient stress test that was clearly explained to the patient and her daughters. Go Wood MD
--- NOTE | 2018-10-25 08:09 | DS ---
DISCHARGE DIAGNOSES: 1. Urinary tract infection with hypotension, rule out septicemia. 2. Diabetes. 3. Hypertension. 4. Hyperlipidemia. HISTORY OF PRESENT ILLNESS: This is a 63-year-old female with history of morbid obesity, diabetes, hypertension, hyperlipidemia who came in because of abdominal pain, nausea, vomiting, found to have urinary tract infection. Negative blood culture. No evidence of septicemia. The patient was treated with antibiotics, found to have E. coli, sensitive to cephazolin. The patient was given cephazolin. She is afebrile. She is feeling better, she is for discharge. The patient had borderline troponin, seen by Cardiology. No further workup was recommended and is here for discharge. The patient's condition is stable upon discharge, and medical management including statin, Keflex. PHYSICAL EXAMINATION: VITAL SIGNS: Blood pressure 138/72, pulse 82, respiratory rate 18, and temperature 98. LUNGS: Clear. CARDIOVASCULAR SYSTEM: S1 and S2, regular. ABDOMEN: Soft. LABORATORY DATA: WBC 8, hemoglobin 12.3, hematocrit 33.1, platelets 168. Chemistry: Sodium 140, potassium 3.8, chloride 103, bicarb 29, BUN 6, creatinine 0.6. CONDITION UPON DISCHARGE: Stable. Fer Carranza MD
--- NOTE | 2018-10-25 17:16 | CARD ---
APPROVED REPORT Date of service: 10/22/2018 EKG Measurement Heart [id number] <Conclusion> Normal sinus rhythm Normal ECG
--- NOTE | 2018-10-25 22:22 | CARD ---
APPROVED REPORT Date of service: 10/19/2018 EKG Measurement Heart [id number] <Conclusion> Normal sinus rhythm Normal ECG
--- NOTE | 2018-10-25 23:49 | PQF ---
PROVIDER RESPONSE TEXT: ACUTE NON ST ELEVATION LA REVIEWER QUERY TEXT: Myocardial Infarction Type An LA is documented. Please specify the type of LA. The patient's Clinical Indicators include: ACS WITH ELEVATED TROPONINS----.[id number] PLEASE CLARIFY AND DOCUMENT IF AN 'NSTEMI' WAS --R/I--OR R/O Query created by: Gail Pitt on 10/25/2018 1:16 PM Electronically signed by: Fer Carranza MD 10/25/2018 11:46 PM
== END 2018-10-24 16:20 | disposition home or self-care (01) | DRG 280 ==
LOC: C.ER 10:09 → C.9I 15:46
PROVIDERS: ADMIT Internal Medicine; ATTEND Internal Medicine
DX: I21.4 Non-ST elevation (NSTEMI) myocardial infarction (principal); I63.9 Cerebral infarction, unspecified; I61.9 Nontraumatic intracerebral hemorrhage, unspecified; N39.0 Urinary tract infection, site not specified; Z68.41 Body mass index [BMI] 40.0-44.9, adult; B96.20 Unspecified Escherichia coli [E. coli] as the cause of diseases classified elsewhere; E11.65 Type 2 diabetes mellitus with hyperglycemia; E66.01 Morbid (severe) obesity due to excess calories; E78.5 Hyperlipidemia, unspecified; E86.0 Dehydration; E87.6 Hypokalemia; I10 Essential (primary) hypertension; J45.909 Unspecified asthma, uncomplicated; L29.9 Pruritus, unspecified; Z87.891 Personal history of nicotine dependence; E83.51 Hypocalcemia